=== PATIENT | male | born 1935 | race Caucasian/White ===

== ENCOUNTER → 2016-11-12 | Outpatient (CLI) | payer MEDICARE, BC ==
[2016-07-24 06:32] VITALS: BP 164/91
[~2016-11-12] MED LIST: ALBU8.5H8 INH; ASPI-630 PO; CEFT1FRO2 IV; CHOL10003 PO; DILT120T3 PO; FISH12002 PO; IBRU140C PO; IPRA3AMP NEB; LEVO500P IV; LORA10TA68 PO; MELO15TA23 PO; MULT-208 PO; OMEP40CA5 PO; PRED5TAB PO
--- NOTE | 2016-11-12 10:13 | RAD ---
Carotid ultrasound, 11/12/2016: History: Left neck and arm swelling Duplex evaluation of the carotid arteries in neck was performed including grayscale, color-flow and spectral Doppler analysis. There is mild intimal thickening and smooth plaquing in the common carotid arteries and at the carotid bifurcations. The peak systolic velocity in the right internal carotid artery is 68 cm/s and on the left is 89 cm/s. No significant velocity acceleration is seen on either side to suggest a hemodynamically significant carotid stenosis. Antegrade flow is present in both vertebral arteries in the neck. IMPRESSION: Mild atherosclerotic plaquing at both carotid bifurcations with underlying luminal narrowing in the 0-50% diameter range bilaterally. Note: Stenosis calculations for CT, MRA and conventional angiography are based upon determination of the distal ICA diameter in accordance with the NASCET methodology. Stenosis calculations for Doppler studies are derived from validated velocity criteria which are known to correlate with NASCET methodology of determining stenosis.
== END | disposition home or self-care (01) ==
LOC: US 08:36
PROVIDERS: ATTEND Family Medicine
DX: I65.23 Occlusion and stenosis of bilateral carotid arteries (principal); J43.2 Centrilobular emphysema; J20.8 Acute bronchitis due to other specified organisms; J96.01 Acute respiratory failure with hypoxia; M79.89 Other specified soft tissue disorders
CPT/HCPCS: 93880

== ENCOUNTER 2016-11-22 14:36 | Emergency (ER) | payer MEDICARE, BC ==
[~2016-11-22] VITALS: Ht 193 cm; Wt 82.2 kg
[2016-11-22 14:44] VITALS: BP 135/65
[2016-11-22] MEDS ORDERED: IV NORMAL SALINE 1,000ML 1,000 ML IV SCH (14:44)
[2016-11-22] MEDS ORDERED: MORPHINE SULFATE 4 MG/ML DISP.SYRIN. IV/SQ PRN (14:45)
--- NOTE | 2016-11-22 14:53 | PHYS DOC ---
General Chief Complaint: ABDOMINAL PAIN Stated Complaint: Abd. Pain Time Seen by MD: 14:42 Source: patient, EMS Exam Limitations: no limitations Problems: History of Present Illness Initial Comments Patient is an 80-year-old male brought to the ED by EMS with complaint of nausea vomiting and abdominal/back muscular pain. Patient states that symptoms started about an hour ago after eating a meal provided by [employer]. 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 EMS reports there was vomit in the patient think questionably coffee ground material, no gross blood or coffee grounds noted in emesis upon ED arrival. Patient states that the abdominal pain and continuous retching has caused his back to hurt. Patient has COPD and uses an oxygen concentrator by nasal cannula his baseline is 2 L. EMS report patient's oxygen saturation on 2 L was 80%, they were able to titrate him to 4 L of oxygen with a pretty consistent oxygen saturation 96%. Patient denies chest pain or difficulty breathing. Shortly after arrival patient requested his oxygen be turned back to his baseline 2 L, his sats remained stable throughout ED course. Timing/Duration: 1 hour Severity: moderate Modifying Factors: worse with eating Associated Symptoms: nausea/vomiting, other Allergies: Coded Allergies: procaine (Verified Allergy, Intermediate, 03/27/16) pseudoephedrine (Verified Allergy, Intermediate, 03/27/16) zolpidem (Verified Allergy, Intermediate, 03/27/16) Past Medical History Medical History: other (cancer, copd, gerd, pneumonia) Surgical History: noncontributory Social History Smoker: non-smoker Alcohol: none Drugs: none Review of Systems Constitutional: denies chills, diaphoresis, denies fever, denies malaise Respiratory: see HPI, cough Cardiovascular: denies chest pain, denies palpitations, denies syncope Gastrointestinal: abdominal pain, denies constipation, denies diarrhea, nausea , vomiting Genitourinary: denies dysuria, denies frequency, denies hematuria, denies pain Musculoskeletal: see HPI, denies joint swelling, denies neck pain Psychiatric/Neurological: denies headache, denies numbness, denies paresthesia , denies weakness Hematologic/Lymphatic: denies blood clots, denies easy bleeding Physical Exam General Appearance: moderate distress (retching and vomiting on ED arrival) Eyes: bilateral eye normal inspection, bilateral eye PERRL, bilateral eye EOMI Ear, Nose, Throat: hearing grossly normal, normal ENT inspection, normal pharynx Neck: non-tender, supple Respiratory: other (wheezes bilaterally with good air movement no respiratory distress chest is nontender) Cardiovascular: normal peripheral pulses, regular rate, rhythm Gastrointestinal: soft (nondistended, bowel sounds normal, mild epigastric tenderness without rebound guarding or mass negative [place]) Rectal: deferred Back: no CVA tenderness, no vertebral tenderness Extremities: non-tender, normal inspection Neurologic/Psychiatric: 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 PHYSICIAN: JOSE JOHNSON DO REASON: n/v/hypoxia PROCEDURE: ACUTE ABDOMEN SERIES Indication difficulty breathing. Abdominal pain. Nausea and vomiting. An AP view of the chest was obtained as well as upright and supine films of the abdomen. The chest is compared to an examination 4 months earlier. No prior imaging of the abdomen is available. There are chronic changes compatible with emphysema and/or fibrosis.. Heart size is slightly enlarged. There is no gross congestive heart failure. Significant pleural fluid is not seen. There is no pneumothorax. An acute finding in the chest is not seen. There is a large hiatus hernia. There is no free air. The abdominal gas pattern is nonobstructive. A moderately large amount of stool is noted in the large bowel. Scoliosis and degenerative changes in the lumbar spine are noted. IMPRESSION: Chronic changes in the chest. No acute finding seen. Mild enlargement of the cardiac silhouette. Large hiatus hernia. No acute finding seen in the abdomen. Large amount of stool in the large bowel. Chronic musculoskeletal changes DICTATED AND SIGNED BY: CHIN SANDESR MD DATE: 06/01/17 1532 CC: STANISLAV HATCH MD; JOSE JOHNSON DO ~ Hemoglobin 11, MCV 75, platelets 129, emesis Gastroccult negative, urinalysis equivocal will await culture 1642: I discussed the patient's results with him at length that his questions were answered. Reassuring workup, he is currently back to his normal 2 L nasal cannula with normal saturation. He says he burped "a very large burp" which dramatically helped his symptoms. Further discussion reveals as of the third episode of similar symptoms he's had in the past few months. He has hiatal hernia and Camarillo's esophagus history, he has not been to see gastroenterology in several years and is due. I discussed follow-up with Dr. Hatch tomorrow for recheck and to discuss outpatient gastroenterology workup. HEENT his family expressed agreement and understanding, he has medications for nausea at home and is asymptomatic no prescriptions necessary at this point. Departure Time of Disposition: 16:44 Disposition: 01 HOME, SELF-CARE Diagnosis: vomiting, COPD O2 dependent Condition: IMPROVED Patient Instructions: Nausea and Vomiting, [id number] Additional Instructions: Continue current medications. [place] diet as tolerated, increase fluids for better hydration Gatorade or water. Follow-up with Dr. Hatch tomorrow for recheck and to discuss outpatient gastroenterology follow-up visit. Return to the ED with new or changing symptoms. JOSE JOHNSON DO Nov 22, 2016 14:53
[2016-11-22] MEDS ORDERED: FAMOTIDINE 20 MG/2 ML VIAL IVP ONE (15:00)
[2016-11-22] MEDS ORDERED: ONDANSETRON PF 4 MG/2 ML VIAL. IV ONE (15:00)
[2016-11-22 15:27] LABS: BASO # 0.1 x10^3/uL (0.0-0.2); BASO % 1 % (0-3); EOS # 0.3 x10^3/uL (0.0-0.7); EOS % 3 % (0-3); HEMATOCRIT 35.4 % (39.0-53.0); LYMPH # 0.5 x10^3/uL (1.0-4.8); LYMPH % 5 % (24-48); MEAN CORPUSCULAR HEMOGLOBIN 23 pg (25-35); MEAN CORPUSCULAR HGB CONC 31 g/dL (31-37); MEAN CORPUSCULAR VOLUME 75 fL (79-100); MONO # 1.9 x10^3/uL (0.0-1.1); MONO % 20 % (0-9); NEUT # 6.8 x10^3uL (1.8-7.7); NEUT % 71 % (31-73); PLATELET COUNT 129 x10^3/uL (140-400); RED BLOOD COUNT 4.71 x10^6/uL (4.30-5.70); RED CELL DISTRIBUTION WIDTH 17.8 % (11.5-14.5); WHITE BLOOD COUNT 9.6 x10^3/uL (4.0-11.0)
--- NOTE | 2016-11-22 15:38 | RAD ---
Indication difficulty breathing. Abdominal pain. Nausea and vomiting. An AP view of the chest was obtained as well as upright and supine films of the abdomen. The chest is compared to an examination 4 months earlier. No prior imaging of the abdomen is available. There are chronic changes compatible with emphysema and/or fibrosis.. Heart size is slightly enlarged. There is no gross congestive heart failure. Significant pleural fluid is not seen. There is no pneumothorax. An acute finding in the chest is not seen. There is a large hiatus hernia. There is no free air. The abdominal gas pattern is nonobstructive. A moderately large amount of stool is noted in the large bowel. Scoliosis and degenerative changes in the lumbar spine are noted. IMPRESSION: Chronic changes in the chest. No acute finding seen. Mild enlargement of the cardiac silhouette. Large hiatus hernia. No acute finding seen in the abdomen. Large amount of stool in the large bowel. Chronic musculoskeletal changes
[2016-11-22 15:47] LABS: ALBUMIN 3.5 g/dL (3.4-5.0); ALBUMIN/GLOBULIN RATIO 1.2 (1.0-1.7); CALCIUM 8.5 mg/dL (8.5-10.1); CREATININE 1.2 mg/dL (0.7-1.3); GFR 58.3; POTASSIUM 4.5 mmol/L (3.5-5.1); TOTAL BILIRUBIN 0.4 mg/dL (0.2-1.0); TOTAL PROTEIN 6.5 g/dL (6.4-8.2)
[2016-11-22 15:55] LABS: BGAS PH 7.32 (7.35-7.46)
[2016-11-22 16:01] LABS: GASTRIC OB PAT NEGATIVE (NEG)
--- NOTE | 2016-11-22 16:06 | EKG ---
[address] [address] Test Date: 2016-11-22 Test Time: 15:05:44 Pat Name: IGNACIO ELIZONDO Department: Room: Gender: M Microbiology Lab Technician: JOAN : 1935 Requested By: JOSE JOHNSON Order Number: [id number] Reading MD: Aston Cain Measurements Intervals [place] Rate: 65 P: 31 VA: 182 QRS: -87 QRSD: 134 T: 24 QT: 434 QTc: 457 Interpretive Statements SINUS RHYTHM ABNORMAL LEFT AXIS DEVIATION LEFT ANTERIOR FASCICULAR BLOCK RIGHT BUNDLE BRANCH BLOCK BIFASCICULAR BLOCK NON SPECIFIC ST-T ABNORMALITY (ELEVATION) RI6.01 Unconfirmed report No previous ECG available for comparison Electronically Signed On 11-28-2016 9:21:27 CDT by Aston Cain
--- NOTE | 2016-11-22 16:15 | ACF ---
Admission Criteria Forms COPD Clinical Indications for Admission to Inpatient Care (Place 'X' for any and all applicable criteria): Admission is indicated for ANY ONE of the following (1)(2)(3): [ ]I. Acute exacerbation by high-risk comorbidity (e.g., pneumonia, dysrhythmia, heart failure, pleural effusion, pneumothorax) or severe underlying COPD (e.g., steroid dependent) [X]II. Inpatient admission required rather than observation care (see Chronic Obstructive Pulmonary Disease: Observation Care) because of ANY ONE of the following: [ ]a) New or pre-existing signs or symptoms of COPD (eg, dyspnea or Tachypnea at rest or with minimal activity) that persist despite outpatient and observation care treatment [ ]b) New-onset hypoxemia (room air SaO2 less than 90%, PO2 less than 60 mm Hg (8.0 kPa)) that persists despite outpatient and observation care treatment [ ]c) Worsening of pre-existing hypoxemia (eg, new or increased requirement for supplemental oxygen to maintain oxygenation at baseline level) that persists despite outpatient and observation care treatment, with oxygen treatment needs performable only in acute inpatient setting [X]d) Hypercarbia (PCO2 greater than 40 mm Hg (5.3 kPa))-induced respiratory acidosis (pH less than 7.35) that persists despite outpatient and observation care treatment [ ]e) Supplemental oxygen or respiratory treatments for over 24 hours that are performable only in acute inpatient setting [ ]f) Chest tube placement with active evacuation (e.g., suction, drainage) (5) [ ]g) Other condition, treatment or monitoring requiring inpatient admission [ ]III. Planned invasive surgical or diagnostic procedures requiring acute- care hospitalization [ ]IV. Acute respiratory failure (e.g., uncompensated hypercarbia, severe hypoxemia) [ ]V. Severe comorbid condition (e.g., severe steroid myopathy, acute vertebral fracture) that has acutely worsened pulmonary function [ ]. Confusion state, lethargy, obtundation, stupor or coma Extended stay beyond goal length of stay may be needed for (31)(32): [ ]a ) Respiratory Failure. [ ]b) Severe or persisting hypoxemia or hypercarbia [ ]c) Severe or persistent dyspnea [ ]d) Comorbidities (e.g. chronic heart failure, atrial fibrillation with rapid response, pneumonia) [ ]e) Malnutrition The original [facility] content created by [facility] has been revised. The portions of the content which have been revised are identified through the use of italic text or in bold, and [facility] has neither reviewed nor approved the modified material. All other unmodified content is copyright [facility]. Please see references footnoted in the original [facility] edition 2016 Admission Criteria Met?: Yes TOD MYRICK Nov 22, 2016 16:15
[2016-11-22 16:41] LABS: BILIRUBIN,URINE NEG (NEG); CLARITY,URINE CLEAR; COLOR,URINE YELLOW; GLUCOSE,URINE NEG (NEG); NITRITE,URINE NEG (NEG); UROBILINOGEN,URINE 0.2 mg/dL (0.2 mg/dL)
[2016-11-22 16:42] LABS: BACTERIA,URINE 0 /HPF (0-FEW); HYALINE CASTS, URINE FEW /HPF; RBC,URINE OCC /HPF (0-2); SQUAMOUS EPITHELIAL CELL,UR FEW /LPF
[2016-11-27] MEDS ORDERED: LEVO750P IV (11:08)
[2016-11-27] MEDS ORDERED: MORP4CAR IV (11:08)
[2016-11-27] MEDS ORDERED: ONDA4VIA4 IV (11:08)
[2016-11-27] MEDS ORDERED: CEFT1VIA6 IJ (11:08)
== END 2016-11-22 17:15 | disposition home or self-care (01) ==
LOC: ER 14:36
DX: R11.2 Nausea with vomiting, unspecified (principal); J44.9 Chronic obstructive pulmonary disease, unspecified; K21.9 Gastro-esophageal reflux disease without esophagitis; Z99.81 Dependence on supplemental oxygen; Z88.4 Allergy status to anesthetic agent; Z88.8 Allergy status to other drugs, medicaments and biological substances
CPT/HCPCS: 36415; 36600; 74022; 80053; 81001; 82271; 82803; 83605; 83690; 84484; 85027; 85610; 85730; 87040; 87086; 93005; 96361; 96374; 96375; 99285; J2405; S0028; J7030

== ENCOUNTER 2016-11-26 22:02 | Inpatient (IN) | payer MEDICARE, BC ==
[~2016-11-26] VITALS: Ht 193 cm; Wt 82.1 kg
[2016-11-26] MEDS ORDERED: IV NORMAL SALINE 1,000ML 1,000 ML IV ONE (23:00)
[2016-11-26] MEDS ORDERED: ONDANSETRON PF 4 MG/2 ML VIAL. IV ONE (23:15)
[2016-11-26] MEDS ORDERED: CONTRAST GIVEN MC PRN (23:15)
[2016-11-26] MEDS ORDERED: IOHEXOL 300 MG/ML 75 ML VIAL. IV ONE (23:15)
[2016-11-26 23:49] LABS: BASO # 0.1 x10^3/uL (0.0-0.2); BASO % 2 % (0-3); EOS # 0.1 x10^3/uL (0.0-0.7); EOS % 1 % (0-3); HEMATOCRIT 34.3 % (39.0-53.0); HEMOGLOBIN 10.7 g/dL (13.0-17.5); LYMPH # 0.3 x10^3/uL (1.0-4.8); LYMPH % 5 % (24-48); MEAN CORPUSCULAR HEMOGLOBIN 23 pg (25-35); MEAN CORPUSCULAR HGB CONC 31 g/dL (31-37); MEAN CORPUSCULAR VOLUME 75 fL (79-100); MONO # 1.5 x10^3/uL (0.0-1.1); MONO % 23 % (0-9); NEUT # 4.7 x10^3uL (1.8-7.7); NEUT % 69 % (31-73); PLATELET COUNT 107 x10^3/uL (140-400); RED CELL DISTRIBUTION WIDTH 18.1 % (11.5-14.5); WHITE BLOOD COUNT 6.7 x10^3/uL (4.0-11.0)
[2016-11-26 23:59] LABS: ALBUMIN 3.6 g/dL (3.4-5.0); ALBUMIN/GLOBULIN RATIO 1.3 (1.0-1.7); CALCIUM 8.5 mg/dL (8.5-10.1); CREATININE 1.2 mg/dL (0.7-1.3); GFR 58.1; POTASSIUM 4.8 mmol/L (3.5-5.1); TOTAL BILIRUBIN 0.3 mg/dL (0.2-1.0); TOTAL PROTEIN 6.4 g/dL (6.4-8.2)
[2016-11-27 00:16] LABS: ANISOCYTOSIS SLIGHT; HYPOCHROMIA SLIGHT; PLT ESTIMATE DECREASED (ADEQUATE)
--- NOTE | 2016-11-27 00:42 | RAD ---
CT abdomen and pelvis with contrast: Reason for examination: Abdominal pain with nausea and vomiting for 1 week. History of lymphoma in remission. Helical images were obtained through the abdomen and pelvis with intravenous administration of 75 cc Omnipaque 300. Reconstruction was performed in sagittal and coronal planes. Exposure: One or more of the following individualized dose reduction techniques were utilized for this examination: 1. Automated exposure control 2. Adjustment of the mA and/or kV according to patient size 3. Use of iterative reconstruction technique. The lung bases show presence of patchy interstitial infiltrates bilaterally. The heart size is normal with no pericardial effusion seen. There is a large hiatal hernia containing large portion of stomach. No focal abnormality seen in the liver, spleen, adrenal glands, gallbladder or pancreas. The abdominal aorta and inferior vena cava show no acute abnormalities. The stomach appears be full of fluid in the intestinal tract does not appear distended and there is no apparent bowel obstruction. There are diverticula in the sigmoid colon consistent with diverticulosis but no evidence of diverticulitis. There is a moderate amount of fecal material within the colon. The kidneys show no evidence of masses or hydronephrosis. There is however a nonobstructing calculus in the upper pole right kidney. No abnormality seen in the bladder. Prostate gland contains calcifications. Seminal vesicles appear relatively symmetric. A few prominent lymph nodes are seen in the retroperitoneum. There are severe degenerative changes in the spine. No acute abnormalities seen in the bony structures. IMPRESSION: Large hiatal hernia containing a large portion of fluid-filled stomach. Interstitial infiltrates in the bases bilaterally. Diverticulosis in the sigmoid colon without evidence of diverticulitis. A few prominent lymph nodes in the retroperitoneum. Nonobstructing calculus in the right kidney upper pole. Electronically signed by: Susie Wells MD (11/27/2016 12:39 AM)
[2016-11-27 00:58] LABS: BACTERIA,URINE FEW /HPF (0-FEW); BILIRUBIN,URINE NEG (NEG); CLARITY,URINE CLEAR; COLOR,URINE YELLOW; GLUCOSE,URINE NEG (NEG); NITRITE,URINE NEG (NEG); RBC,URINE 0 /HPF (0-2); SQUAMOUS EPITHELIAL CELL,UR OCC /LPF; UROBILINOGEN,URINE 0.2 mg/dL (0.2 mg/dL)
--- NOTE | 2016-11-27 01:34 | PHYS DOC ---
Past History Past Medical History: Cancer, COPD, GERD Past Surgical History: No Surgical History Alcohol Use: None Drug Use: None Adult General Chief Complaint Chief Complaint: ABDOMINAL PAIN HPI HPI Patient is a 81 year old M who presents with intractable nausea and abdominal pain since 11 AM this morning. Patient denies any vomiting. Patient denies any fevers. Patient denies any diarrhea. Patient does have a productive cough and states that he just came off around of antibiotics for a URI. Pertinent exam findings: 3/6 systolic ejection murmur Generalized mild abdominal tenderness with bowel sounds are normal 4 quadrants ED course: Patient seen and evaluated in the emergency room CBC, CMP, lipase, UA, CT scan abdomen and pelvis were ordered 0055: Results were discussed with the patient who is still having increased nausea but no vomiting and a productive cough therefore will admit the hospital for further treatment of his persistent pneumonia 0101: Dr. Sexton was called and left a message on the cell phone 0120: Discussed CC/HP/PMH with Dr. Sexton and recommends admit [] Pertinent results: CT scan abdomen and pelvis: IMPRESSION: Large hiatal hernia containing a large portion of fluid-filled stomach. Interstitial infiltrates in the bases bilaterally. Diverticulosis in the sigmoid colon without evidence of diverticulitis. A few prominent lymph nodes in the retroperitoneum. Nonobstructing calculus in the right kidney upper pole. MDM: After reviewing the chart, CC/HPI/PMH, physical exam, [lab results], [ radiological results], I do not believe the patient has intra-abdominal emergency wanting emergent surgical intervention however he's had a persistent nausea and CT scan does show bilateral lower lobe infiltrates that have not resolved even though the patient didn't course of antibiotics. We will the patient for further treatment for his pneumonia and his nausea. Review of Systems Review of Systems GEN: Denies fevers, chills, sweats HEENT: Denies blurred vision, sore throat CV: Denies chest pain RESP: Denies shortness of air, cough GI: Aston pain with nausea and no vomiting NEURO: Denies confusion, dizziness MSK: Denies weakness, joint pain/swelling Current Medications Current Medications Current Medications Medications (Trade) Dose Ordered Sig/Saad Start Time Stop Time Status Last Admin Dose Admin Info (Do NOT chart on this entry -- for MONITORING) 1 each PRN DAILY PRN 11/26/16 23:15 11/28/16 23:14 Iohexol (Omnipaque 300 Mg/ml) 75 ml 1X ONCE 11/26/16 23:15 11/26/16 23:16 DC 11/26/16 23:18 75 ML Levofloxacin/ Dextrose 150 ml @ 150 mls/hr 1X ONCE 11/27/16 01:30 11/27/16 02:29 UNV Ondansetron HCl (Zofran) 4 mg 1X ONCE 11/26/16 23:15 11/26/16 23:16 DC 11/26/16 23:15 4 MG Sodium Chloride 1,000 ml @ 1,000 mls/hr 1X ONCE 11/26/16 23:00 11/26/16 23:59 DC 11/26/16 23:00 1,000 MLS/HR Allergies Allergies Allergies Coded Allergies Type Severity Reaction Last Updated Verified procaine Allergy Intermediate 03/27/16 Yes pseudoephedrine Allergy Intermediate 03/27/16 Yes zolpidem Allergy Intermediate 03/27/16 Yes Physical Exam Physical Exam GEN.: No apparent distress. Alert and oriented. HEENT: Head is normocephalic, atraumatic NECK: Supple. LUNGS: CTAB. HEART: RRR, 3/6 IRA. Peripheral pulses intact ABDOMEN: Soft, generalized abdominal tenderness. Positive bowel sounds. EXTREMITIES: Without any cyanosis. NEUROLOGIC: Normal speech, normal tone PSYCHIATRIC: Normal affect, normal mood. SKIN: No ulcerations Current Patient Data Vital Signs Vital Signs Date Time Temp Pulse Resp B/P (MAP) Pulse Ox O2 Delivery O2 Flow Rate FiO2 11/26/16 22:30 98.5 71 22 90 Nasal Cannula 2.0 Lab Results Laboratory Tests Test 11/26/16 23:25 11/27/16 00:30 White Blood Count 6.7 x10^3/uL (4.0-11.0) Red Blood Count 4.60 x10^6/uL (4.30-5.70) Hemoglobin 10.7 g/dL (13.0-17.5) L Hematocrit 34.3 % (39.0-53.0) L Mean Corpuscular Volume 75 fL (79-100) L Mean Corpuscular Hemoglobin 23 pg (25-35) L Mean Corpuscular Hemoglobin Concent 31 g/dL (31-37) Red Cell Distribution Width 18.1 % (11.5-14.5) H Platelet Count 107 x10^3/uL (140-400) L Neutrophils (%) (Auto) 69 % (31-73) Lymphocytes (%) (Auto) 5 % (24-48) L Monocytes (%) (Auto) 23 % (0-9) H Eosinophils (%) (Auto) 1 % (0-3) Basophils (%) (Auto) 2 % (0-3) Neutrophils # (Auto) 4.7 x10^3uL (1.8-7.7) Lymphocytes # (Auto) 0.3 x10^3/uL (1.0-4.8) L Monocytes # (Auto) 1.5 x10^3/uL (0.0-1.1) H Eosinophils # (Auto) 0.1 x10^3/uL (0.0-0.7) Basophils # (Auto) 0.1 x10^3/uL (0.0-0.2) Platelet Estimate Decreased (ADEQUATE) Large Platelets Occ Hypochromasia Slight Anisocytosis Slight Sodium Level 142 mmol/L (136-145) Potassium Level 4.8 mmol/L (3.5-5.1) Chloride Level 106 mmol/L (98-107) Carbon Dioxide Level 30 mmol/L (21-32) Anion Gap 6 (6-14) Blood Urea Nitrogen 27 mg/dL (8-26) H Creatinine 1.2 mg/dL (0.7-1.3) Estimated GFR (Cockcroft-Gault) 58.1 BUN/Creatinine Ratio 23 (6-20) H Glucose Level 156 mg/dL (70-99) H Calcium Level 8.5 mg/dL (8.5-10.1) Total Bilirubin 0.3 mg/dL (0.2-1.0) Aspartate Amino Transferase (AST) 18 U/L (15-37) Alanine Aminotransferase (ALT) 22 U/L (16-63) Alkaline Phosphatase 83 U/L (46-116) Total Protein 6.4 g/dL (6.4-8.2) Albumin 3.6 g/dL (3.4-5.0) Albumin/Globulin Ratio 1.3 (1.0-1.7) Lipase 309 U/L (73-393) Urine Collection Type Unknown Urine Color Yellow Urine Clarity Clear Urine pH 5.5 Urine Specific [place] 1.010 Urine Protein Neg (NEG-TRACE) Urine Glucose (UA) Neg mg/dL (NEG) Urine Ketones (Stick) Neg mg/dL (NEG) Urine Blood Neg (NEG) Urine Nitrite Neg (NEG) Urine Bilirubin Neg (NEG) Urine Urobilinogen Dipstick 0.2 mg/dL (0.2 mg/dL) Urine Leukocyte Esterase Neg (NEG) Urine RBC 0 /HPF (0-2) Urine WBC 1-4 /HPF (0-4) Urine Squamous Epithelial Cells Occ /LPF Urine Bacteria Few /HPF (0-FEW) EKG EKG [] Radiology/Procedures Radiology/Procedures CT scan of abdomen and pelvis with contrast: IMPRESSION: Large hiatal hernia containing a large portion of fluid-filled stomach. Interstitial infiltrates in the bases bilaterally. Diverticulosis in the sigmoid colon without evidence of diverticulitis. A few prominent lymph nodes in the retroperitoneum. Nonobstructing calculus in the right kidney upper pole.[] Course & Med Decision Making Course & Med Decision Making Pertinent Labs and Imaging studies reviewed. (See chart for details) [] Dragon Disclaimer Dragon Disclaimer This chart was dictated in whole or in part using Voice Recognition software in a busy, high-work load, and often noisy Emergency Department environment. It may contain unintended and wholly unrecognized errors or omissions. Departure Departure: Impression: Primary Impression: Pneumonia Additional Impression: Hiatal hernia Disposition: 09 ADMITTED INPATIENT Admitting Physician: Stanislav Sexton Condition: STABLE Referrals: STANISLAV SEXTON MD (PCP) Problem Qualifiers Primary Impression: Pneumonia Pneumonia type: due to unspecified organism Laterality: bilateral Lung location: lower lobe of lung Qualified Codes: J18.9 - Pneumonia, unspecified organism SEDRICK LOWE DO Nov 27, 2016 01:34
[2016-11-27 02:00] VITALS: BP 115/67
[2016-11-27] MEDS ORDERED: IV NORMAL SALINE 1,000ML 1,000 ML IV SCH (04:03)
--- NOTE | 2016-11-27 04:08 | ACF ---
Admission Criteria Forms PNEUMONIA, COMMUNITY ACQUIRED Clinical Indications for Admission to Inpatient Care ( Place 'X' for any and all applicable criteria): Admission is indicated for ANY ONE of the following (1)(2)(3): [ ]I. Hypoxemia indicated by ANY ONE of the following: [ ]a) Oxygen saturation less than 90% while breathing room air [ ]b) PO2 less than 60 mm Hg (8.0 kPa) while breathing room air [ ]c) Chronic lung disease with significant deterioration from baseline oxygenation [ ]II. Appropriate diagnostic testing and treatment unavailable in outpatient or recovery facility (eg,testing or infection control measures unavailable(10) [X]III. Moderate-risk or high-risk category patients (Pneumonia Severity Index (PSI) class IV or V, or CURB-65 score of 3 or greater). [ ]IV. Outpatient treatment failure as indicated by ANY ONE of the following(9) : [ ]a) Failure to respond to antibiotic (eg, resistant organism) [ ]b) Clinically significant adverse effects from medication (eg, vomiting) [ ]c) Complications of pneumonia (eg, empyema, bacteremia) [ ]d) Significant worsening of comorbid cond necessitating inpatient care (eg, chronic heart failure) [ ]V. Intermediate-risk category patients (eg, PSI class III or CURB-65 score 2) who do not improve with initial therapy and observation. [ ]. Immunocompromised patients (eg, AIDS, chronic steroid use) at moderate or high risk based on clinical evaluation. [ ]VII. Complicated pleural effusions (eg, exudative, loculated) [ ]VIII.Hemodynamic instability [ ] IX. Altered mental status that is severe or persistent. [ ]X. Dehydration that is severe or persistent. [ ]XI. Bacteremia [ ]XII. Respiratory finding (eg. tachypnea) that do not respond to outpatient or observation care treatment Extended stay beyond goal length of stay may be needed for (20) [ ]a) Unclear diagnosis [ ]b) Pleural disease [ ]c) Severe pneumonia or treatment failure (25 [ ]d) Respiratory failure (anticipate invasive or noninvasive ventilatory support) [ ]e) Abnormal serum electrolytes (serum Na concentration less than 135 mEq/L (mmol/L) (32)(33) [ ]f) Clinically significant comorbid illness (eg, heart failure, atrial fibrillation with rapid heart rate, alcohol withdrawal, renal insufficiency)(34)(35) [ ]g) Comorbid acute exacerbation of COPD(36) [ ]h) Concomitant diagnosis of malignancy that may be associated with malnutrition, immunologic impairment, or bronchial obstruction. [ ]i) Concomitant altered mental status [ ]j) Culture-identified Gram-negative or antibiotic-resistant organism (eg, Pseudomonas, methicillin-resistant Staphylococcus aureus)(30) [ ]k) Healthcare-associated pneumonia The original [facility] [facility], [facility] content created by [employer] has been revised. The portions of the content which have been revised are identified through the use of italic text or in bold, and [facility] has neither reviewed nor approved the modified material. All other unmodified content is copyright [employer] [facility], [facility]. Please see references footnoted in the original [facility] edition 2016 Admission Criteria Met?: Yes TOD MYRICK Nov 27, 2016 04:08
[2016-11-27] MEDS ORDERED: MORPHINE SULFATE 4 MG/ML DISP.SYRIN. IV PRN (04:30)
[2016-11-27] MEDS ORDERED: ONDANSETRON PF 4 MG/2 ML VIAL. IV PRN (04:30)
[2016-11-27] MEDS ORDERED: DILT180C4 PO (05:15)
[2016-11-27] MEDS ORDERED: PROC10TA57 PO (05:15)
[2016-11-27] MEDS ORDERED: BUME1TAB PO (05:15)
[2016-11-27] MEDS ORDERED: FURO-69 PO (05:15)
[2016-11-27] MEDS ORDERED: TAMS0.4C97 PO (05:15)
[2016-11-27 06:00] VITALS: BP 106/67
[2016-11-27] MEDS ORDERED: ALBUTEROL SULFATE 8GM INHALER. INH PRN (09:45)
[2016-11-27] MEDS ORDERED: PROCHLORPERAZINE 10 MG TABLET. PO PRN (09:45)
[2016-11-27] MEDS ORDERED: CHOLECALCIFEROL (VITAMIN D3) 1,000 UNIT TABLET PO SCH (10:00)
[2016-11-27] MEDS ORDERED: MELOXICAM 15 MG TABLET. PO SCH (10:00)
[2016-11-27] MEDS ORDERED: TAMSULOSIN 0.4 MG CAP.ER.24H. PO SCH (10:00)
[2016-11-27] MEDS ORDERED: ASPIRIN 81 MG TAB.CHEW PO SCH (10:00)
[2016-11-27] MEDS: IPRATRPIUM/ALBUTEROL 0.5/2.5MG 3 ML NEBU. NEB SCH ×2 (10:04→10:25)
[2016-11-27] MEDS ORDERED: CETIRIZINE HCL 10 MG TABLET PO SCH (10:15)
[2016-11-27] MEDS ORDERED: ALBUTEROL SULFATE 2.5 MG/3 ML NEBU. NEB PRN (10:15)
[2016-11-27] MEDS ORDERED: OMEGA-3 FATTY ACIDS/FISH OIL 1,000 MG CAPSULE. PO SCH (10:15)
[2016-11-27 10:43] VITALS: BP 117/75
[2016-11-27] MEDS ORDERED: CEFT1VIA6 IJ (11:08)
[2016-11-27] MEDS ORDERED: MORP4CAR IV (11:08)
[2016-11-27] MEDS ORDERED: ONDA4VIA4 IV (11:08)
[2016-11-27] MEDS ORDERED: LEVO750P IV (11:08)
--- NOTE | 2016-11-27 11:55 | NUR ---
Discharge Note: IGNACIO ELIZONDO Discharge instructions and discharge home medications reviewed with [facility] RN and a copy given. All questions have been answered and understanding verbalized. The following instructions and handouts were given: MEDICATIONS, IMAGING, LABS, DIET, ACTIVITY, AND FOLLOW UP INSTRUCTIONS. Discontinued lines and drains: PERIPHERAL IV LEFT INTACT FOR USE AT [facility]. Patient discharged to [facility] via EMS.
[2016-11-28] MEDS ORDERED: PANTOPRAZOLE 40 MG TABLET. PO SCH (07:30)
[2016-11-28] MEDS ORDERED: FUROSEMIDE 20 MG TABLET PO SCH (09:00)
[2016-11-28] MEDS ORDERED: MULTIVITAMIN with MINERAL TABLET. PO SCH (09:00)
[2016-11-28] MEDS ORDERED: IBRUTINIB 140 MG PO SCH (09:00)
[2016-11-28] MEDS ORDERED: BUMETANIDE 1 MG TABLET PO SCH (09:00)
--- NOTE | 2016-12-05 13:07 | SSS ---
ADMIT DATE: 11/27/2016 HOSPITAL COURSE: An 81-year-old gentleman came in through the Emergency Room with severe intractable nausea, vomiting, and abdominal pain. The patient notes that he has not been having any diarrhea. He does have a productive cough. The patient has multiple chronic medical problems. As a result of this, the patient was admitted to the hospital and found to have a large hiatal hernia up into his thoracic cavity. The patient was admitted for admission and further evaluation by surgery. PAST MEDICAL HISTORY: Tonsillitis, tonsillectomy, adenoidectomy, severe respiratory problems, COPD, chronic oxygen therapy, asthma, and pneumonia. 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 SOCIAL HISTORY: As noted, history of smoking, quit in 1986. Denies alcohol or drug use. Lives at home. FAMILY HISTORY: Father confirmed with some form of cancer. ALLERGIES: THE PATIENT HAS ALLERGIES TO PROCAINE, PSEUDOEPHEDRINE, AND AMBIEN. REVIEW OF SYSTEMS: Positive for weight loss, difficulty swallowing food gets caught in his throat, nausea, vomiting, and like. HOME MEDICATIONS: Albuterol nebulizer, ____ 1 mg daily, Rocephin daily, diltiazem 180 daily, loratadine 10 mg daily, meloxicam 15, morphine p.r.n., Prilosec p.r.n., and Flomax. PHYSICAL EXAMINATION: GENERAL: The patient on exam is a pleasant white male in moderate amount of distress. VITAL SIGNS: Blood pressure 120/70, respiratory 26, pulse 73, and afebrile. HEENT: The patient's head was atraumatic and normocephalic. Eyes, PERRLA without jaundice. Mouth and throat were normal. NECK: Supple. LUNGS: Diminished. Marked kyphosis and scoliosis to the spine. Decreased breath sounds. CVR: Regular sinus rhythm. 2-3/6 systolic ejection. ABDOMEN: Soft and nontender. No rebound or scaphoid. EXTREMITIES. No clubbing, cyanosis, or edema. NEUROLOGIC: The patient was alert and oriented x 3. LABORATORY DATA: The patient's blood sugar 156. BUN and creatinine 27 and 1.2. White count 6. Hemoglobin noted stable. The patient's urine unremarkable. IMPRESSION AND PLAN: The patient continued to be monitored accordingly. The patient was therefore of a large hiatal hernia and fluid filled into the lung itself up into thoracic cavity. In any case, the patient was admitted for evaluation by surgery and transferred down to the hospital [facility] [place] since we do not have any general surgeon here to take care such situation as indicated. STANISLAV HATCH MD DR: LUDY/ciro JOB#: [id number] / [id number]
== END 2016-11-27 11:57 | disposition short-term general hospital (02) | DRG 391 ==
LOC: ER 22:02 → 1 SOUTH 11-27 01:32
PROVIDERS: ADMIT Family Medicine; ATTEND Family Medicine
DX: K44.9 Diaphragmatic hernia without obstruction or gangrene (principal); J96.20 Acute and chronic respiratory failure, unspecified whether with hypoxia or hypercapnia; J44.0 Chronic obstructive pulmonary disease with (acute) lower respiratory infection; J44.9 Chronic obstructive pulmonary disease, unspecified; K21.9 Gastro-esophageal reflux disease without esophagitis; K57.30 Diverticulosis of large intestine without perforation or abscess without bleeding; Z88.4 Allergy status to anesthetic agent; Z88.8 Allergy status to other drugs, medicaments and biological substances; Z87.01 Personal history of pneumonia (recurrent)
CPT/HCPCS: 36415; 74177; 80053; 81001; 83605; 83690; 85008; 85027; 87040; 94640; 96361; 96374; J0696; J1956; J2405; J7620; Q9967; 99285-25; J7030

== ENCOUNTER 2016-12-07 23:28 | Emergency (ER) | payer MEDICARE, BC ==
[~2016-12-07] VITALS: Ht 185.4 cm; Wt 75.0 kg
[~2016-12-07 23:28] MED LIST changes: +BUME1TAB PO; +CEFT1VIA6 IJ; +DILT180C4 PO; +FURO-69 PO; +LEVO750P IV; +MORP4CAR IV; +ONDA4VIA4 IV; +PROC10TA57 PO; +TAMS0.4C97 PO
[2016-12-08] MEDS ORDERED: MORPHINE SULFATE 4 MG/ML DISP.SYRIN. IV/SQ PRN (00:15)
[2016-12-08] MEDS ORDERED: FAMOTIDINE 20 MG/2 ML VIAL IVP ONE (00:30)
[2016-12-08] MEDS ORDERED: ONDANSETRON PF 4 MG/2 ML VIAL. IV ONE (00:30)
[2016-12-08] MEDS ORDERED: IV NORMAL SALINE 1,000ML 1,000 ML IV SCH (00:30)
[2016-12-08 01:09] LABS: ALBUMIN 3.6 g/dL (3.4-5.0); ALBUMIN/GLOBULIN RATIO 1.2 (1.0-1.7); CALCIUM 8.7 mg/dL (8.5-10.1); CREATININE 1.4 mg/dL (0.7-1.3); GFR 48.6; MAGNESIUM 2.5 mg/dL (1.8-2.4); POTASSIUM 4.1 mmol/L (3.5-5.1); TOTAL BILIRUBIN 0.3 mg/dL (0.2-1.0); TOTAL PROTEIN 6.7 g/dL (6.4-8.2)
[2016-12-08 01:32] LABS: BASO # 0.1 x10^3/uL (0.0-0.2); BASO % 1 % (0-3); EOS # 0.1 x10^3/uL (0.0-0.7); EOS % 1 % (0-3); HEMATOCRIT 35.6 % (39.0-53.0); HEMOGLOBIN 10.8 g/dL (13.0-17.5); LYMPH # 0.4 x10^3/uL (1.0-4.8); LYMPH % 4 % (24-48); MEAN CORPUSCULAR HEMOGLOBIN 23 pg (25-35); MEAN CORPUSCULAR HGB CONC 30 g/dL (31-37); MEAN CORPUSCULAR VOLUME 76 fL (79-100); MONO # 1.7 x10^3/uL (0.0-1.1); MONO % 18 % (0-9); NEUT # 7.1 x10^3uL (1.8-7.7); NEUT % 76 % (31-73); PLATELET COUNT 111 x10^3/uL (140-400); RED BLOOD COUNT 4.72 x10^6/uL (4.30-5.70); RED CELL DISTRIBUTION WIDTH 18.2 % (11.5-14.5); WHITE BLOOD COUNT 9.3 x10^3/uL (4.0-11.0)
--- NOTE | 2016-12-08 01:44 | PHYS DOC ---
Past History Past Medical History: Cancer, COPD, GERD Past Surgical History: No Surgical History Alcohol Use: None Drug Use: None Adult General Chief Complaint Chief Complaint: ABDOMINAL PAIN HPI HPI Patient is a 81 year old male who presents with complaint of abdominal pain and vomiting. Patient states that his symptoms started earlier today. Patient states that he was recently admitted to the hospital at [facility] on November 27 where he was evaluated for similar symptoms. Patient was diagnosed with a large hiatal hernia. Patient also has history of cancer and COPD. The patient is scheduled to have surgery for his hiatal hernia on December 10 at [facility]. Patient states that he took Compazine at home with no relief in symptoms. Patient currently rates the pain in his upper abdomen is 8 out of 10. Patient denies any fevers or blood in his emesis. Review of Systems Review of Systems Constitutional: Denies fever or chills [] Eyes: Denies change in visual acuity, redness, or eye pain [] HENT: Denies nasal congestion or sore throat [] Respiratory: Denies cough or shortness of breath [] Cardiovascular: Denies chest pain or edema [] GI: Abdominal pain, nausea, vomiting, denies bloody stools or diarrhea [] : Denies dysuria or hematuria [] Musculoskeletal: Denies back pain or joint pain [] Integument: Denies rash or skin lesions [] Neurologic: Denies headache, focal weakness or sensory changes [] Current Medications Current Medications Current Medications Medications (Trade) Dose Ordered Sig/Saad Start Time Stop Time Status Last Admin Dose Admin Famotidine (Pepcid) 20 mg 1X ONCE 12/08/16 00:30 12/08/16 00:31 DC 12/08/16 00:30 20 MG Morphine Sulfate (Morphine 4mg Syringe) 4 mg PRN Q15MIN PRN 12/08/16 00:15 12/09/16 00:14 12/08/16 00:38 4 MG Ondansetron HCl (Zofran) 4 mg 1X ONCE 12/08/16 00:30 12/08/16 00:31 DC 12/08/16 00:30 4 MG Sodium Chloride 1,000 ml @ 1,000 mls/hr Q1H 12/08/16 00:30 12/08/16 01:29 DC 12/08/16 00:30 1,000 MLS/HR Allergies Allergies Allergies Coded Allergies Type Severity Reaction Last Updated Verified procaine Allergy Intermediate 03/27/16 Yes pseudoephedrine Allergy Intermediate 03/27/16 Yes zolpidem Allergy Intermediate 03/27/16 Yes Physical Exam Physical Exam Constitutional: Alert, afebrile, appears in chronically poor health. [] HENT: Normocephalic, atraumatic, bilateral external ears normal, oropharynx moist, no oral exudates, nose normal. [] Eyes: PERRLA, EOMI, conjunctiva normal, no discharge. [] Neck: Normal range of motion, no tenderness, supple, no stridor. [] Cardiovascular:Heart rate regular rhythm, no murmur [] Lungs & Thorax: Bilateral breath sounds clear to auscultation [] Abdomen: Bowel sounds normal, soft, epigastric tenderness to palpation, no masses, no pulsatile masses. [] Skin: Warm, dry, no erythema, no rash. [] Back: No tenderness, no CVA tenderness. [] Extremities: No tenderness, no cyanosis, no clubbing, ROM intact, no edema. [] Neurologic: Alert and oriented X 3, normal motor function, normal sensory function, no focal deficits noted. [] Current Patient Data Lab Results Laboratory Tests Test 12/08/16 00:45 Sodium Level 140 mmol/L (136-145) Potassium Level 4.1 mmol/L (3.5-5.1) Chloride Level 103 mmol/L (98-107) Carbon Dioxide Level 33 mmol/L (21-32) H Anion Gap 4 (6-14) L Blood Urea Nitrogen 32 mg/dL (8-26) H Creatinine 1.4 mg/dL (0.7-1.3) H Estimated GFR (Cockcroft-Gault) 48.6 BUN/Creatinine Ratio 23 (6-20) H Glucose Level 195 mg/dL (70-99) H Calcium Level 8.7 mg/dL (8.5-10.1) Magnesium Level 2.5 mg/dL (1.8-2.4) H Total Bilirubin 0.3 mg/dL (0.2-1.0) Aspartate Amino Transferase (AST) 13 U/L (15-37) L Alanine Aminotransferase (ALT) 15 U/L (16-63) L Alkaline Phosphatase 77 U/L (46-116) Total Protein 6.7 g/dL (6.4-8.2) Albumin 3.6 g/dL (3.4-5.0) Albumin/Globulin Ratio 1.2 (1.0-1.7) Lipase 263 U/L (73-393) EKG EKG Not performed [] Radiology/Procedures Radiology/Procedures Not performed [] Course & Med Decision Making Course & Med Decision Making Pertinent Labs and Imaging studies reviewed. (See chart for details) The patient was given IV fluids, morphine, Zofran, and Pepcid. On reevaluation, patient states that his symptoms have significantly improved at this time. After speaking with the patient, he states that he would like to go home. Advised patient to continue on clear liquid diet at home and to continue on home medications for symptoms. Advised to keep his scheduled surgery in the next 2 days at [facility]. Advised return to the emergency department for any worsening symptoms. Patient voiced understanding and in agreement with treatment plan. Dragon Disclaimer Dragon Disclaimer This chart was dictated in whole or in part using Voice Recognition software in a busy, high-work load, and often noisy Emergency Department environment. It may contain unintended and wholly unrecognized errors or omissions. Departure Departure: Impression: Primary Impression: Nausea and vomiting Additional Impressions: Abdominal pain Hiatal hernia COPD (chronic obstructive pulmonary disease) Disposition: HOME, SELF-CARE Condition: IMPROVED Referrals: STANISLAV HATCH MD (PCP) Patient Instructions: Abdominal Pain (Nonspecific), Nausea and Vomiting Additional Instructions: Continue on a liquid diet at home as tolerated. Follow-up on December 10 as scheduled for your surgery. Return to the emergency department for any worsening symptoms. Problem Qualifiers Primary Impression: Nausea and vomiting Vomiting type: unspecified Vomiting Intractability: non-intractable Qualified Codes: R11.2 - Nausea with vomiting, unspecified Additional Impressions: Abdominal pain Abdominal location: epigastric Qualified Codes: R10.13 - Epigastric pain COPD (chronic obstructive pulmonary disease) COPD type: unspecified COPD Qualified Codes: J44.9 - Chronic obstructive pulmonary disease, unspecified RACHEL VAZQUEZ MD Dec 08, 2016 01:44
[2016-12-08 02:17] LABS: BACTERIA,URINE FEW /HPF (0-FEW); BILIRUBIN,URINE NEG (NEG); CLARITY,URINE CLEAR; COLOR,URINE YELLOW; GLUCOSE,URINE NEG (NEG); NITRITE,URINE NEG (NEG); RBC,URINE 0 /HPF (0-2); SQUAMOUS EPITHELIAL CELL,UR FEW /LPF; UROBILINOGEN,URINE 0.2 mg/dL (0.2 mg/dL); WBC,URINE 0 /HPF (0-4)
[2016-12-08 02:47] VITALS: BP 121/64
[2016-12-08 02:50] LABS: % BANDS 1 % (0-9); % LYMPHS 7 % (24-48); % SEGS 75 % (35-66)
[2016-12-08 02:51] LABS: % BASOS 1 % (0-3); % EOS 1 % (0-5); % MONOS 15 % (0-10); ANISOCYTOSIS PRESENT; HYPOCHROMIA PRESENT; MICROCYTOSIS PRESENT; PLT ESTIMATE DECREASED (ADEQUATE); POIKILOCYTOSIS PRESENT
== END 2016-12-08 02:47 | disposition home or self-care (01) ==
LOC: ER 23:28
DX: K44.9 Diaphragmatic hernia without obstruction or gangrene (principal); J44.9 Chronic obstructive pulmonary disease, unspecified; K21.9 Gastro-esophageal reflux disease without esophagitis; Z88.4 Allergy status to anesthetic agent; Z88.8 Allergy status to other drugs, medicaments and biological substances
CPT/HCPCS: 36415; 80053; 81001; 83690; 83735; 85007; 85027; 96361; 96374; 96375; 99284; J2270; J2405; S0028; J7030

== ENCOUNTER → 2017-04-10 | Outpatient (CLI) | payer MEDICARE, BC ==
[~2017-04-10] MED LIST changes: +PRED2.5T PO
--- NOTE | 2017-04-10 15:12 | RAD ---
CT of the chest without contrast 04/10/2017 Indication: COPD, pneumonia. Comparison study: CT of the chest without contrast July 20, 2016. Technique: Multidetector CT imaging of the chest was performed without the administration of contrast. Findings: Heart size is normal. No pericardial effusion is identified. Aortic calcification is noted. Dense calcification of the aortic valve is seen. Scattered small mediastinal lymph nodes are noted without evidence of pathologically enlarged mediastinal adenopathy. Surgical clips are noted just below the diaphragm. There is been repair of the patient's previously seen hiatal hernia. There is mild elevation of left hemidiaphragm. Limited visualization of the upper abdomen demonstrates no acute changes. Right-sided nephrolithiasis versus vascular calcification noted. There is a small left pleural effusion with underlying atelectasis. Severe emphysematous changes are noted throughout the lungs. Bullous changes are noted in the lung apex. There is a 5 mm noncalcified nodule right upper lobe, previously obscured by atelectasis (axial image 22). Tree-in-bud opacities are seen in the right lower lobe however this is decreased since prior chest radiograph. Nodular opacities are seen in the right lower lobe, somewhat decreased since comparison study is well. Multiple areas of bronchiectasis are seen most prominent lower lobes. Multiple areas of bronchial obstruction are seen in the left lower lobe which could represent mucous plugging. Bronchitis could have this appearance. A component of lower lobe atelectasis could therefore also be postobstructive. Diffuse osteopenia is noted. Diffuse degenerative changes of the thoracic spine are seen. No acute osseous abnormality is not identified. Impression: 1. Small left pleural effusion with underlying atelectasis 2. Improving but persistent tree-in-bud infiltrates in the right lower lobe 3. Multiple right lower lobe pulmonary nodules less prominent than on comparison study 4. Lower lobe predominant bronchiectasis with multiple areas of bronchial obstruction particularly in the left lower lobe. This could represent proctitis or mucus plugging. 5. 5 mm noncalcified nodule right upper lobe, previously obscured. 6. Given findings consider six-month follow-up CT chest should ensure resolution infiltrates and/or stability of nodules.
== END | disposition home or self-care (01) ==
LOC: CT 14:07
PROVIDERS: ATTEND Family Medicine
DX: J44.9 Chronic obstructive pulmonary disease, unspecified (principal); J18.1 Lobar pneumonia, unspecified organism; J90 Pleural effusion, not elsewhere classified; J98.6 Disorders of diaphragm; J98.09 Other diseases of bronchus, not elsewhere classified; R91.8 Other nonspecific abnormal finding of lung field; I70.0 Atherosclerosis of aorta; M85.80 Other specified disorders of bone density and structure, unspecified site; M47.894 Other spondylosis, thoracic region; Z87.891 Personal history of nicotine dependence
CPT/HCPCS: 71250

== ENCOUNTER 2017-04-11 15:55 | Inpatient (IN) | payer MEDICARE, BC ==
[~2017-04-11] VITALS: Ht 185.4 cm; Wt 78.2 kg
[~2017-04-11 15:55] MED LIST changes: -PRED2.5T PO
[2017-04-11] MEDS: IV NORMAL SALINE 1,000ML 1,000 ML IV SCH (16:45)
[2017-04-11 17:10] VITALS: BP 101/64
[2017-04-11 17:18] LABS: BASO # 0.1 x10^3/uL (0.0-0.2); BASO % 1 % (0-3); EOS % 0 % (0-3); HEMATOCRIT 30.4 % (39.0-53.0); HEMOGLOBIN 9.6 g/dL (13.0-17.5); LYMPH # 0.6 x10^3/uL (1.0-4.8); LYMPH % 8 % (24-48); MEAN CORPUSCULAR HEMOGLOBIN 23 pg (25-35); MEAN CORPUSCULAR HGB CONC 32 g/dL (31-37); MEAN CORPUSCULAR VOLUME 74 fL (79-100); MONO # 1.9 x10^3/uL (0.0-1.1); MONO % 26 % (0-9); NEUT # 4.7 x10^3uL (1.8-7.7); NEUT % 64 % (31-73); PLATELET COUNT 116 x10^3/uL (140-400); RED BLOOD COUNT 4.12 x10^6/uL (4.30-5.70); RED CELL DISTRIBUTION WIDTH 18.9 % (11.5-14.5); WHITE BLOOD COUNT 7.3 x10^3/uL (4.0-11.0)
[2017-04-11 17:23] LABS: ALBUMIN 3.3 g/dL (3.4-5.0); C REACTIVE PROTEIN 22.5 mg/L (0-3.3); CALCIUM 8.4 mg/dL (8.5-10.1); CREATININE 1.9 mg/dL (0.7-1.3); GFR 34.2; MAGNESIUM 2.1 mg/dL (1.8-2.4); POTASSIUM 4.9 mmol/L (3.5-5.1); TOTAL BILIRUBIN 0.5 mg/dL (0.2-1.0); TOTAL PROTEIN 6.6 g/dL (6.4-8.2)
[2017-04-11] MEDS ORDERED: ALBUTEROL SULFATE 8GM INHALER. INH PRN (18:00)
[2017-04-11] MEDS ORDERED: PROCHLORPERAZINE 10 MG TABLET. PO PRN (18:00)
[2017-04-11] MEDS ORDERED: ALBUTEROL SULFATE 2.5 MG/3 ML NEBU. NEB PRN (18:15)
--- NOTE | 2017-04-11 18:31 | RAD ---
History: Fall previous night, pain. Comparison: None. Findings: AP, lateral, and oblique views of the left ankle. There is an obliquely oriented fracture involving the distal fibular shaft superior to the ankle mortise (Perez C). There is 1/4 shaft width lateral displacement of the distal fragment. There is associated soft tissue swelling. No significant ankle mortise widening is identified. Impression: Acute distal fibular fracture. Electronically signed by: Luca Kirkpatrick MD (04/11/2017 6:28 PM) [facility]
--- NOTE | 2017-04-11 18:33 | RAD ---
PA and lateral chest radiograph. History: Fell previous night, right-sided pain and pneumonia. Comparison: None. Findings: Cardiomediastinal silhouette is within normal limits for size. Aortic atherosclerosis is seen. No pneumothorax is identified. There may be small left pleural effusion. Emphysematous changes of lungs are seen. No focal consolidation is identified. No displaced rib fractures are identified. Impression: 1. Question left pleural effusion Electronically signed by: Luca Kirkpatrick MD (04/11/2017 6:30 PM) [facility]
--- NOTE | 2017-04-11 18:34 | RAD ---
History: Pain, fell previous night. Comparison: None. Findings: AP, lateral, and oblique views of the left knee. No acute fracture or dislocation is identified. Mild tricompartment degeneration is seen. No joint effusion is identified. Quadriceps tendon insertional enthesophyte is present. Chondrocalcinosis is seen. Arterial calcifications are present. AP, lateral, and oblique views of the right knee. No acute fracture or dislocation is identified. No joint effusion is seen. Mild tricompartment degeneration is present. Chondrocalcinosis is seen. Arterial calcifications are present. Impression: No acute osseous traumatic injury identified in either knee. Electronically signed by: Luca Kirkpatrick MD (04/11/2017 6:31 PM) [facility]
[2017-04-11 19:12] VITALS: BP 100/60
[2017-04-11 19:42] LABS: SEDIMENTATION RATE 11 (0-15)
[2017-04-11] MEDS: ACETAMINOPHEN 325 MG TABLET PO PRN (19:50)
[2017-04-11 21:29] LABS: BGAS PH 7.45 (7.35-7.46)
[2017-04-11] MEDS: IPRATRPIUM/ALBUTEROL 0.5/2.5MG 3 ML NEBU. NEB SCH (21:41)
[2017-04-11 23:01] VITALS: BP 114/68
[2017-04-11 23:44] LABS: CLARITY,URINE CLEAR; COLOR,URINE YELLOW
[2017-04-11 23:45] LABS: BACTERIA,URINE FEW /HPF (0-FEW); BILIRUBIN,URINE NEG (NEG); GLUCOSE,URINE NEG (NEG); NITRITE,URINE NEG (NEG); RBC,URINE OCC /HPF (0-2); SQUAMOUS EPITHELIAL CELL,UR OCC /LPF; UROBILINOGEN,URINE 0.2 mg/dL (0.2 mg/dL); WBC,URINE OCC /HPF (0-4)
[2017-04-11 23:46] LABS: HYALINE CASTS, URINE FEW /HPF
[2017-04-12] MEDS: IV NORMAL SALINE 1,000ML 1,000 ML IV SCH ×2 (04:11→19:25)
[2017-04-12] MEDS: ACETAMINOPHEN 325 MG TABLET PO PRN ×2 (04:12→22:29)
[2017-04-12] MEDS: IPRATRPIUM/ALBUTEROL 0.5/2.5MG 3 ML NEBU. NEB SCH ×3 (05:17→10:02)
[2017-04-12 05:26] VITALS: BP 116/71
[2017-04-12] MEDS: ASPIRIN 81 MG TAB.CHEW PO SCH (07:33)
[2017-04-12] MEDS ORDERED: CETIRIZINE HCL 10 MG TABLET PO SCH (09:00)
[2017-04-12] MEDS ORDERED: FUROSEMIDE 20 MG TABLET PO SCH (09:00)
[2017-04-12] MEDS ORDERED: TAMSULOSIN 0.4 MG CAP.ER.24H. PO SCH (09:00)
[2017-04-12] MEDS ORDERED: PANTOPRAZOLE 40 MG TABLET. PO SCH (09:00)
[2017-04-12] MEDS ORDERED: CHOLECALCIFEROL (VITAMIN D3) 1,000 UNIT TABLET PO SCH (09:00)
[2017-04-12] MEDS ORDERED: BUMETANIDE 1 MG TABLET PO SCH (09:00)
[2017-04-12] MEDS: MULTIVITAMIN with MINERAL TABLET. PO SCH (09:03)
[2017-04-12] MEDS: OMEGA-3 FATTY ACIDS/FISH OIL 1,000 MG CAPSULE. PO SCH (09:03)
[2017-04-12] MEDS: IBRUTINIB 140 MG PO SCH (09:03)
[2017-04-12] MEDS: MELOXICAM 15 MG TABLET. PO SCH (09:03)
[2017-04-12] MEDS ORDERED: PRED2.5T PO (09:28)
[2017-04-12 10:50] VITALS: BP 94/63
[2017-04-12 15:17] VITALS: BP 115/65
[2017-04-12 18:15] VITALS: BP 103/53
[2017-04-12 23:33] VITALS: BP 102/65
[2017-04-13] MEDS: ACETAMINOPHEN 325 MG TABLET PO PRN ×2 (04:47→23:54)
[2017-04-13 04:52] VITALS: BP 92/56
[2017-04-13] MEDS: IPRATRPIUM/ALBUTEROL 0.5/2.5MG 3 ML NEBU. NEB SCH ×3 (05:08→21:08)
[2017-04-13 05:58] LABS: ALBUMIN 2.8 g/dL (3.4-5.0); ALBUMIN/GLOBULIN RATIO 0.8 (1.0-1.7); CALCIUM 8.2 mg/dL (8.5-10.1); CREATININE 1.4 mg/dL (0.7-1.3); GFR 48.6; POTASSIUM 4.3 mmol/L (3.5-5.1); TOTAL BILIRUBIN 0.6 mg/dL (0.2-1.0); TOTAL PROTEIN 6.1 g/dL (6.4-8.2)
[2017-04-13 06:15] LABS: BASO # 0.1 x10^3/uL (0.0-0.2); BASO % 1 % (0-3); EOS # 0.2 x10^3/uL (0.0-0.7); EOS % 3 % (0-3); HEMOGLOBIN 9.8 g/dL (13.0-17.5); LYMPH # 0.7 x10^3/uL (1.0-4.8); LYMPH % 11 % (24-48); MEAN CORPUSCULAR HEMOGLOBIN 24 pg (25-35); MEAN CORPUSCULAR HGB CONC 32 g/dL (31-37); MEAN CORPUSCULAR VOLUME 74 fL (79-100); MONO # 2.2 x10^3/uL (0.0-1.1); MONO % 33 % (0-9); NEUT # 3.4 x10^3uL (1.8-7.7); NEUT % 52 % (31-73); PLATELET COUNT 101 x10^3/uL (140-400); RED BLOOD COUNT 4.17 x10^6/uL (4.30-5.70); RED CELL DISTRIBUTION WIDTH 18.9 % (11.5-14.5); WHITE BLOOD COUNT 6.5 x10^3/uL (4.0-11.0)
[2017-04-13 07:17] LABS: % BASOS 3 % (0-3); % EOS 3 % (0-5); % LYMPHS 27 % (24-48); % MONOS 22 % (0-10); % SEGS 45 % (35-66)
[2017-04-13 07:18] LABS: ANISOCYTOSIS SLIGHT; HYPOCHROMIA SLIGHT; OVALOCYTES OCC; PLT ESTIMATE DECREASED (ADEQUATE); POIKILOCYTOSIS SLIGHT; POLYCHROMASIA SLIGHT; TOXIC VACUOLATION SLIGHT
[2017-04-13 07:19] LABS: HYPERSEGS PRESENT; MICROCYTOSIS SLIGHT
[2017-04-13] MEDS: ASPIRIN 81 MG TAB.CHEW PO SCH (09:00)
[2017-04-13] MEDS: OMEGA-3 FATTY ACIDS/FISH OIL 1,000 MG CAPSULE. PO SCH (09:17)
[2017-04-13] MEDS: predniSONE 5 MG TABLET PO SCH (09:17)
[2017-04-13] MEDS: MELOXICAM 15 MG TABLET. PO SCH (09:17)
[2017-04-13] MEDS: MULTIVITAMIN with MINERAL TABLET. PO SCH (09:17)
[2017-04-13] MEDS: IBRUTINIB 140 MG PO SCH (09:17)
[2017-04-13] MEDS: IV NORMAL SALINE 1,000ML 1,000 ML IV SCH ×2 (09:34→23:17)
[2017-04-13 13:12] VITALS: BP 86/54
[2017-04-13 15:51] VITALS: BP 103/60
[2017-04-13] MEDS: CALCIUM CARB/VIT D3 500/200 TABLET PO SCH (17:03)
[2017-04-13 20:02] VITALS: BP 98/62
--- NOTE | 2017-04-13 22:41 | PN ---
DATE: 04/13/2017 SUBJECTIVE: The patient in with generalized weakness, hypotension, fracture to his left fibula. The patient also had acute renal failure, better hydrated. He is feeling a little better, does not have much pain, but there is fibular fracture. The patient otherwise seems to be resting fairly comfortably. OBJECTIVE: VITAL SIGNS: Blood pressure 92/56, respiratory rate 18, pulse 67, afebrile. GENERAL: The patient is alert and oriented. LUNGS: Diminished, but clear. CARDIOVASCULAR: Regular sinus rhythm. ABDOMEN: Soft, nontender. EXTREMITIES: Left lower leg swollen and erythematous. LABORATORY DATA: We will go ahead and continue to monitor him there. Electrolytes and chemistries look good. Hemoglobin stable at 9.8 and 31. Creatinine has come down from 1.9 to 1.4. IMPRESSION: Therefore, dehydration, acute renal failure, fracture to the left fibular from fall at home, history of chronic obstructive pulmonary disease, inguinal hernia, oxygen dependent chronic obstructive pulmonary disease. PLAN: We will try to get an orthopedic consult and make further evaluation on him as indicated. STANISLAV HATCH MD DR: LUDY/ciro JOB#: [id number] / [id number]
[2017-04-13 23:18] VITALS: BP 129/89
[2017-04-14] MEDS ORDERED: Influenza vaccine per PROTOCOL. MC PRN (02:30)
[2017-04-14] MEDS: ACETAMINOPHEN 325 MG TABLET PO PRN ×2 (04:07→23:09)
[2017-04-14 05:36] VITALS: BP 105/56
[2017-04-14] MEDS: IPRATRPIUM/ALBUTEROL 0.5/2.5MG 3 ML NEBU. NEB SCH ×3 (05:36→20:50)
[2017-04-14] MEDS: ASPIRIN 81 MG TAB.CHEW PO SCH (09:00)
[2017-04-14] MEDS ORDERED: FLU VACC QS2017-18 (36MOS+)/PF 0.5 ML SYRINGE. VAX IM ONE (09:00)
[2017-04-14] MEDS: MULTIVITAMIN with MINERAL TABLET. PO SCH (09:32)
[2017-04-14] MEDS: OMEGA-3 FATTY ACIDS/FISH OIL 1,000 MG CAPSULE. PO SCH (09:32)
[2017-04-14] MEDS: CALCIUM CARB/VIT D3 500/200 TABLET PO SCH ×2 (09:32→17:38)
[2017-04-14] MEDS: predniSONE 5 MG TABLET PO SCH (09:32)
[2017-04-14] MEDS: MELOXICAM 15 MG TABLET. PO SCH (09:32)
[2017-04-14] MEDS: IBRUTINIB 140 MG PO SCH (09:34)
[2017-04-14] MEDS: IV NORMAL SALINE 1,000ML 1,000 ML IV SCH (11:25)
[2017-04-14 11:30] VITALS: BP 95/59
[2017-04-14 15:00] VITALS: BP 102/64
[2017-04-14] MEDS ORDERED: POLYETHYLENE GLYCOL 3350 17 GM PACKET. PO PRN (17:00)
[2017-04-14] MEDS: ENOXAPARIN 40 MG/0.4 ML DISP.SYRIN. SQ SCH (18:18)
[2017-04-14 20:28] VITALS: BP 110/62
[2017-04-14 23:39] VITALS: BP 104/62
--- NOTE | 2017-04-15 00:40 | PN ---
DATE: SUBJECTIVE: The patient comes in with a fracture to his lower leg and marked contusion to the lower left leg as well. The patient says he does not have any pain. OBJECTIVE: VITAL SIGNS: Blood pressure 102/64, respiratory rate 22, pulse 66 and afebrile. LUNGS: Diminished, but clear. CARDIOVASCULAR: Stable. ABDOMEN: Soft. EXTREMITIES: Lower leg, markedly erythematous, looks almost hard and red. He has multiple abrasions to that leg from the fall itself. We will put him on vancomycin in case there are any signs of infection. We will try to consult with the orthopedics and see what they have to say about the leg itself. It is fibular or tibial ____, therefore it should not be a major problem. He says he has no pain and still able to walk, but we will do a venous Doppler on the leg and make sure there is no clot in it. IMPRESSION: Fracture of the lower left leg, multiple contusions to the lower left leg, and possible cellulitis to the lower left leg. PLAN: As above. STANISLAV HATCH MD DR: LUDY/ciro JOB#: [id number] / [id number]
[2017-04-15] MEDS: IPRATRPIUM/ALBUTEROL 0.5/2.5MG 3 ML NEBU. NEB SCH ×3 (05:56→20:13)
[2017-04-15 06:21] VITALS: BP 134/71
[2017-04-15] MEDS: CALCIUM CARB/VIT D3 500/200 TABLET PO SCH ×2 (08:03→17:13)
[2017-04-15] MEDS: IBRUTINIB 140 MG PO SCH (08:04)
[2017-04-15] MEDS: MULTIVITAMIN with MINERAL TABLET. PO SCH (08:05)
[2017-04-15] MEDS: ASPIRIN 81 MG TAB.CHEW PO SCH (08:05)
[2017-04-15] MEDS: OMEGA-3 FATTY ACIDS/FISH OIL 1,000 MG CAPSULE. PO SCH (08:05)
[2017-04-15] MEDS: MELOXICAM 15 MG TABLET. PO SCH (08:05)
[2017-04-15] MEDS: predniSONE 5 MG TABLET PO SCH (08:05)
[2017-04-15] MEDS: ACETAMINOPHEN 325 MG TABLET PO PRN (08:06)
[2017-04-15 10:50] VITALS: BP 105/61
[2017-04-15 14:59] VITALS: BP 101/64
[2017-04-15] MEDS: ENOXAPARIN 40 MG/0.4 ML DISP.SYRIN. SQ SCH (17:13)
--- NOTE | 2017-04-15 17:51 | RAD ---
INDICATION: Left leg swelling COMPARISON: None. TECHNIQUE: Grayscale, color and doppler ultrasound images were obtained of the left lower extremity venous vasculature. LEFT: No thrombus identified in the common femoral vein, femoral vein, popliteal vein or visualized calf veins. Mild edema in soft tissues. IMPRESSION: 1. No thrombus identified in deep venous system of the left lower extremity.
[2017-04-15 20:04] VITALS: BP 117/62
[2017-04-16 00:32] VITALS: BP 124/69
[2017-04-16] MEDS: ACETAMINOPHEN 325 MG TABLET PO PRN (01:36)
[2017-04-16 05:47] VITALS: BP 108/70
[2017-04-16] MEDS: IPRATRPIUM/ALBUTEROL 0.5/2.5MG 3 ML NEBU. NEB SCH (05:52)
[2017-04-16] MEDS: CALCIUM CARB/VIT D3 500/200 TABLET PO SCH (07:45)
[2017-04-16] MEDS: ASPIRIN 81 MG TAB.CHEW PO SCH (07:46)
[2017-04-16] MEDS: IBRUTINIB 140 MG PO SCH (07:46)
[2017-04-16] MEDS: predniSONE 5 MG TABLET PO SCH (07:47)
[2017-04-16] MEDS: OMEGA-3 FATTY ACIDS/FISH OIL 1,000 MG CAPSULE. PO SCH (07:47)
[2017-04-16] MEDS: MULTIVITAMIN with MINERAL TABLET. PO SCH (07:47)
[2017-04-16] MEDS: MELOXICAM 15 MG TABLET. PO SCH (07:47)
[2017-04-16 10:13] VITALS: BP 97/56
[2017-04-16 13:28] VITALS: BP 100/63
--- NOTE | 2017-05-01 23:45 | DS ---
DATE OF DISCHARGE: 04/16/2017 HOSPITAL COURSE: An 81-year-old gentleman initially seen in the office apparently he had been falling, fell the day before and had multiple cuts and bruises to his knees. The patient also was noted to have marked inflammation to the left lower leg with appeared to be cellulitis. His blood pressure was low at 78/58. The patient was admitted to the hospital for further evaluation and treatment. He has been feeling tired and worn out and he was admitted for further evaluation and treatment of these multiplicity of medical problems. The patient while in the hospital has taken most of his blood pressure medications. He was started on vancomycin for the cellulitis to the left lower leg. The patient's blood pressure gradually came up. He did suffer fracture of the lower left leg, multiple contusions to the lower left leg and possible cellulitis. The fracture was to the fibular, was in good approximation, it is a strut bone, not a support bone and he said he did not have any pain at all with the fracture. In any case, the patient made a good progress during the rest of his hospitalization. Hemoglobin remained about 9 and 31 and did show low albumin of 2.8, creatinine dropped from 1.9-1.4 demonstrating some degree of dehydration. In any case, the patient made excellent progress and was transferred to the skilled unit. IMPRESSION: Falls at home secondary to hypotension, dehydration, multiple contusions to the left lower leg, fracture to the left fibula distal, cellulitis to the left lower leg, acute renal failure, moderate to severe protein malnutrition. The patient will be kept on IV vancomycin, a heart healthy diet and actually he was transferred to the Skilled Unit at [facility] for continued rehabilitation care. He will be seeing an orthopedic surgeon as an outpatient and make further evaluation once he is evaluated there. See MRAD. Decreased activity and diet as tolerated. STANISLAV HATCH MD DR: LUDY/ciro JOB#: [id number] / [id number]
== END 2017-04-16 14:15 | DRG 314 ==
LOC: 1 SOUTH 15:55
PROVIDERS: ADMIT Family Medicine; ATTEND Family Medicine
DX: I95.9 Hypotension, unspecified (principal); N17.0 Acute kidney failure with tubular necrosis; J96.10 Chronic respiratory failure, unspecified whether with hypoxia or hypercapnia; L03.116 Cellulitis of left lower limb; J98.11 Atelectasis; S82.402A Unspecified fracture of shaft of left fibula, initial encounter for closed fracture; Z99.81 Dependence on supplemental oxygen; E86.0 Dehydration; J44.9 Chronic obstructive pulmonary disease, unspecified; W18.39XA Other fall on same level, initial encounter; K40.90 Unilateral inguinal hernia, without obstruction or gangrene, not specified as recurrent; S20.219A Contusion of unspecified front wall of thorax, initial encounter; S80.02XA Contusion of left knee, initial encounter; S90.02XA Contusion of left ankle, initial encounter; Z88.8 Allergy status to other drugs, medicaments and biological substances; Z85.72 Personal history of non-Hodgkin lymphomas; Z90.49 Acquired absence of other specified parts of digestive tract; Z80.0 Family history of malignant neoplasm of digestive organs; Z87.891 Personal history of nicotine dependence; Z91.89 Other specified personal risk factors, not elsewhere classified; Y93.89 Activity, other specified; Y99.8 Other external cause status; Y92.098 Other place in other non-institutional residence as the place of occurrence of the external cause
CPT/HCPCS: 36415; 36600; 71020; 71250; 73562; 73610; 80053; 81001; 82803; 83605; 83735; 85007; 85025; 85610; 85651; 86140; 87040; 90686; 93971; 94640; 94760; J1650; J1956; J7512; J7613; J7620; 97530; J7030

== ENCOUNTER 2017-04-23 03:38 | Inpatient (IN) | payer MEDICARE, BC ==
[~2017-04-23] VITALS: Ht 193 cm; Wt 79.5 kg
[~2017-04-23 03:38] MED LIST changes: +PRED2.5T PO
[2017-04-23 04:07] LABS: BASO # 0.1 x10^3/uL (0.0-0.2); BASO % 1 % (0-3); EOS % 0 % (0-3); HEMATOCRIT 29.6 % (39.0-53.0); HEMOGLOBIN 9.3 g/dL (13.0-17.5); LYMPH # 0.7 x10^3/uL (1.0-4.8); LYMPH % 7 % (24-48); MEAN CORPUSCULAR HEMOGLOBIN 23 pg (25-35); MEAN CORPUSCULAR HGB CONC 31 g/dL (31-37); MEAN CORPUSCULAR VOLUME 74 fL (79-100); MONO % 21 % (0-9); NEUT # 6.7 x10^3uL (1.8-7.7); NEUT % 70 % (31-73); PLATELET COUNT 129 x10^3/uL (140-400); RED BLOOD COUNT 3.99 x10^6/uL (4.30-5.70); RED CELL DISTRIBUTION WIDTH 19.9 % (11.5-14.5); WHITE BLOOD COUNT 9.6 x10^3/uL (4.0-11.0)
[2017-04-23 04:21] LABS: ALBUMIN 2.9 g/dL (3.4-5.0); ALBUMIN/GLOBULIN RATIO 0.9 (1.0-1.7); CALCIUM 8.7 mg/dL (8.5-10.1); CREATININE 1.2 mg/dL (0.7-1.3); GFR 58.1; POTASSIUM 4.2 mmol/L (3.5-5.1); TOTAL BILIRUBIN 0.8 mg/dL (0.2-1.0); TOTAL PROTEIN 6.2 g/dL (6.4-8.2)
[2017-04-23 04:23] LABS: % BANDS 12 % (0-9); % LYMPHS 8 % (24-48); % MONOS 8 % (0-10); % SEGS 72 % (35-66); ANISOCYTOSIS SLIGHT; HYPOCHROMIA SLIGHT; MICROCYTOSIS SLIGHT; PLT ESTIMATE DECREASED (ADEQUATE)
[2017-04-23] MEDS ORDERED: IV NORMAL SALINE 1,000ML 1,000 ML IV ONE (04:30)
[2017-04-23] MEDS ORDERED: IPRATRPIUM/ALBUTEROL 0.5/2.5MG 3 ML NEBU. NEB ONE (04:30)
[2017-04-23] MEDS ORDERED: methylPREDNISolone SOD SUCC PF 125 MG/2 ML VIAL. IV ONE (04:30)
[2017-04-23] MEDS ORDERED: IV NORMAL SALINE 50ML 50 ML ONE (05:00)
[2017-04-23] MEDS ORDERED: CEFEPIME HCL 1 GM VIAL ONE (05:00)
[2017-04-23] MEDS ORDERED: VANCOMYCIN PER PHARMACY MC PRN (05:00)
--- NOTE | 2017-04-23 05:10 | PHYS DOC ---
Past History Past Medical History: Arthritis, Cancer, COPD, Diverticulitis, GERD, Pneumonia , Other Past Surgical History: Tonsillectomy, Other Alcohol Use: None Drug Use: None Adult General Chief Complaint Chief Complaint: SHORTNESS OF BREATH HPI HPI He 1-year-old male with a history of COPD who is currently in a [facility] facility on 2 L home O2 now sent for evaluation or productive cough and increasing shortness of breath and hypoxia in the high 80s. Patient denies chest pain. Denies orthopnea. He has some chronic weeping lower extremities which she states are unchanged. His left leg is been swollen recently but a recent Doppler was negative. Brought in by EMS 88% on his baseline 2 L. Supplemental oxygen increased to 3 L with which patient improved. Mild wheezing. Patient was admitted for pneumonia and COPD exacerbation by his primary care doctor, Dr. Sexton and discharged home on March 30. Review of Systems Review of Systems Constitutional: Denies fever or chills [] Eyes: Denies change in visual acuity, redness, or eye pain [] HENT: Denies nasal congestion or sore throat [] Respiratory: Denies cough or shortness of breath [] Cardiovascular: No additional information not addressed in HPI [] GI: Denies abdominal pain, nausea, vomiting, bloody stools or diarrhea [] : Denies dysuria or hematuria [] Musculoskeletal: Denies back pain or joint pain [] Integument: Denies rash or skin lesions [] Neurologic: Denies headache, focal weakness or sensory changes [] Endocrine: Denies polyuria or polydipsia [] Current Medications Current Medications Current Medications Medications (Trade) Dose Ordered Sig/Saad Start Time Stop Time Status Last Admin Dose Admin Albuterol/ Ipratropium (Duoneb) 3 ml 1X ONCE 04/23/17 04:30 04/23/17 04:31 DC 04/23/17 04:12 3 ML Cefepime HCl 1 gm/ Sodium Chloride 50 ml @ 100 mls/hr Q8HRS 04/23/17 06:00 UNV Methylprednisolone Sodium Succinate (SOLU-Medrol 125MG VIAL) 125 mg 1X ONCE 04/23/17 04:30 04/23/17 04:31 DC 04/23/17 04:11 125 MG Sodium Chloride 1,000 ml @ 1,000 mls/hr Q1H 04/23/17 22:30 UNV Vancomycin HCl (Vanco Per Pharmacy) 1 each PRN DAILY PRN 04/23/17 05:00 UNV Allergies Allergies Allergies Coded Allergies Type Severity Reaction Last Updated Verified procaine Allergy Intermediate 03/27/16 Yes pseudoephedrine Allergy Intermediate 03/27/16 Yes zolpidem Allergy Intermediate 03/27/16 Yes Physical Exam Physical Exam Constitutional: Chronically ill appearing cachectic cranky elderly male HENT: Normocephalic, atraumatic, bilateral external ears normal, oropharynx mildly dry, no oral exudates, nose normal. [] Eyes: PERRLA, EOMI, conjunctiva normal, no discharge. [] Neck: Normal range of motion, no tenderness, supple, no stridor. [] Cardiovascular:Heart rate regular rhythm, no murmur [] Lungs & Thorax: Bilateral breath sounds with scattered rhonchi, no Rales, mild bilateral wheezes resolved after nebulized therapy Abdomen: Bowel sounds normal, soft, no tenderness, no masses, no pulsatile masses. [] Skin: Warm, dry, no erythema, no rash. [] Back: No tenderness, no CVA tenderness. [] Extremities: No tenderness, no cyanosis, no clubbing, ROM intact, no edema. [] Neurologic: Alert and oriented., normal motor function except patient is generally weak 4-5 with no focal deficit, normal sensory function, no focal deficits noted. [] Psychologic: Affect is flat, judgement normal, mood irritable. [] Current Patient Data Vital Signs Vital Signs Date Time Temp Pulse Resp B/P (MAP) Pulse Ox O2 Delivery O2 Flow Rate FiO2 04/23/17 04:36 96 22 106/46 (66) 90 3.0 04/23/17 03:38 99.5 Room Air Lab Results Laboratory Tests Test 04/23/17 03:53 White Blood Count 9.6 x10^3/uL (4.0-11.0) Red Blood Count 3.99 x10^6/uL (4.30-5.70) L Hemoglobin 9.3 g/dL (13.0-17.5) L Hematocrit 29.6 % (39.0-53.0) L Mean Corpuscular Volume 74 fL (79-100) L Mean Corpuscular Hemoglobin 23 pg (25-35) L Mean Corpuscular Hemoglobin Concent 31 g/dL (31-37) Red Cell Distribution Width 19.9 % (11.5-14.5) H Platelet Count 129 x10^3/uL (140-400) L Neutrophils (%) (Auto) 70 % (31-73) Lymphocytes (%) (Auto) 7 % (24-48) L Monocytes (%) (Auto) 21 % (0-9) H Eosinophils (%) (Auto) 0 % (0-3) Basophils (%) (Auto) 1 % (0-3) Neutrophils # (Auto) 6.7 x10^3uL (1.8-7.7) Lymphocytes # (Auto) 0.7 x10^3/uL (1.0-4.8) L Monocytes # (Auto) 2.0 x10^3/uL (0.0-1.1) H Eosinophils # (Auto) 0.0 x10^3/uL (0.0-0.7) Basophils # (Auto) 0.1 x10^3/uL (0.0-0.2) Segmented Neutrophils % 72 % (35-66) H Band Neutrophils % 12 % (0-9) H Lymphocytes % 8 % (24-48) L Monocytes % 8 % (0-10) Platelet Estimate Decreased (ADEQUATE) Hypochromasia Slight Anisocytosis Slight Microcytosis Slight Sodium Level 138 mmol/L (136-145) Potassium Level 4.2 mmol/L (3.5-5.1) Chloride Level 103 mmol/L (98-107) Carbon Dioxide Level 27 mmol/L (21-32) Anion Gap 8 (6-14) Blood Urea Nitrogen 26 mg/dL (8-26) Creatinine 1.2 mg/dL (0.7-1.3) Estimated GFR (Cockcroft-Gault) 58.1 BUN/Creatinine Ratio 22 (6-20) H Glucose Level 93 mg/dL (70-99) Calcium Level 8.7 mg/dL (8.5-10.1) Total Bilirubin 0.8 mg/dL (0.2-1.0) Aspartate Amino Transferase (AST) 14 U/L (15-37) L Alanine Aminotransferase (ALT) 13 U/L (16-63) L Alkaline Phosphatase 72 U/L (46-116) Troponin I Quantitative 0.022 ng/mL (0-0.055) Total Protein 6.2 g/dL (6.4-8.2) L Albumin 2.9 g/dL (3.4-5.0) L Albumin/Globulin Ratio 0.9 (1.0-1.7) L EKG EKG EKG with normal sinus rhythm in a bigeminy at a rate of 104 left axis deviation no STEMI interpreted by me[] Radiology/Procedures Radiology/Procedures Hyperinflation chronic changes, congestive changes, patchy infiltrates bilateral , interpreted by me[] Course & Med Decision Making Course & Med Decision Making Pertinent Labs and Imaging studies reviewed. (See chart for details) Signs and symptoms consistent with COPD exacerbation in the setting of infectious prodrome with productive cough. Patient afebrile. He is at his baseline mental status per staff. Findings consistent with mild COPD exacerbation with bilateral wheezing resolved after nebulized therapy and steroids administered. Chest x-ray with patchy infiltrates. Blood cultures drawn as well as lactic acid. Sputum culture will be obtained when available. Coverage initiated for healthcare acquired pneumonia coverage. Case discussed with patient's primary care doctor, Dr. Sexton. He is aware the history and findings and agrees with inpatient admission to his service for further workup and treatment as needed. [] Dragon Disclaimer Dragon Disclaimer This chart was dictated in whole or in part using Voice Recognition software in a busy, high-work load, and often noisy Emergency Department environment. It may contain unintended and wholly unrecognized errors or omissions. Departure Departure: Impression: Primary Impression: COPD exacerbation Additional Impressions: Pneumonia Hypoxia Disposition: ADMITTED INPATIENT Admitting Physician: Robbie Sexton Condition: IMPROVED Referrals: ROBBIE SEXTON MD (PCP) Problem Qualifiers SARAH DIAZ MD Apr 23, 2017 05:10
[2017-04-23] MEDS: IV NORMAL SALINE 1,000ML 1,000 ML IV SCH ×3 (05:30→20:43)
[2017-04-23] MEDS ORDERED: VANCOMYCIN 2 GM in IV NORMAL SALINE 500ML 500 ML IV ONE ×2 (05:30→08:00)
[2017-04-23] MEDS: CEFEPIME HCL 1 GM in IV NORMAL SALINE 50ML 50 ML IV SCH ×2 (05:33→20:39)
--- NOTE | 2017-04-23 06:03 | EKG ---
[address] [address] Test Date: 2017-04-23 Test Time: 04:03:19 Pat Name: IGNACIO ELIZONDO Department: Room: Gender: M Security Rep: TASHIA : [id number] Requested By: SARAH DIAZ Order Number: [id number] Reading MD: Ty Newton Measurements Intervals [place] Rate: 104 P: CO: QRS: -73 QRSD: 124 T: 78 QT: 386 QTc: 515 Interpretive Statements SR PVC RBBB CANNOT RULE OUT ANTEROSEPTAL INFARCT POOR R-WAVE PROGRESSION Electronically Signed On 04-24-2017 14:16:58 CDT by Ty Newton
[2017-04-23 06:20] VITALS: BP 103/56
--- NOTE | 2017-04-23 06:20 | NUR ---
Pt admitted to [address] [place] [address] from ER via [facility], accompanied by EMS and nursing staff. Admission assessment completed. Pt states that chief complaint is pneumonia, cough & shortness of breath. Pt here recently for fall with left distal fib fx. Pt with 3+ edema to lower leg. Pt with BLE dressings to wounds and with some scabs and bruising noted. Pictures taken using KISS protocol and new dressing applied. Wound care consulted. PT/OT and case management consulted. PT UTD on flu & pneumonia vaccine. Denies pain. Pt was living at home alone till last admission on 04/11, then sent to [facility]. Pt oriented patient to room, use of call light, and plan of care. Received verbalization of understanding, denies questions/needs. Will monitor. Bed alarm in place.
--- NOTE | 2017-04-23 08:10 | RAD ---
Indication chest pain. Shortness of air. A single view of the chest was obtained and is compared to a two-view examination 12 days earlier. There are background changes compatible with emphysema. Heart size is slightly enlarged but unchanged. There is no congestive heart failure. There is volume loss in the left lower lobe which may reflect atelectasis or pneumonia. No pneumothorax is seen. There may be a tiny left pleural effusion. IMPRESSION: Chronic changes. Volume loss in the left lower lobe may reflect atelectasis or pneumonia. Possible tiny left pleural effusion.
[2017-04-23] MEDS ORDERED: ONDANSETRON PF 4 MG/2 ML VIAL. IV PRN (09:30)
[2017-04-23] MEDS ORDERED: MORPHINE SULFATE 4 MG/ML DISP.SYRIN. IV PRN (09:30)
[2017-04-23] MEDS ORDERED: ALBUTEROL SULFATE 8GM INHALER. INH PRN (09:30)
[2017-04-23] MEDS ORDERED: PROCHLORPERAZINE 10 MG TABLET. PO PRN (09:30)
[2017-04-23] MEDS: IPRATRPIUM/ALBUTEROL 0.5/2.5MG 3 ML NEBU. NEB SCH ×2 (10:14→21:04)
[2017-04-23] MEDS ORDERED: ALBUTEROL SULFATE 2.5 MG/3 ML NEBU. NEB PRN (10:15)
[2017-04-23 10:53] VITALS: BP 99/52
[2017-04-23] MEDS: BUMETANIDE 1 MG TABLET PO SCH (10:56)
[2017-04-23] MEDS: predniSONE 5 MG TABLET PO SCH (10:58)
[2017-04-23] MEDS: MELOXICAM 15 MG TABLET. PO SCH (10:58)
[2017-04-23] MEDS: ASPIRIN 81 MG TAB.CHEW PO SCH (10:58)
[2017-04-23] MEDS: CHOLECALCIFEROL (VITAMIN D3) 1,000 UNIT TABLET PO SCH (10:58)
--- NOTE | 2017-04-23 11:37 | NUR ---
Pharmacy Vancomycin Dosing Note S:Consulted to monitor and dose vancomycin started 04/23/17. O:IGNACIO ELIZONDO is a 81 year old M with HCAP . Height: 6 feet, 4 inches Weight: 77.291727 kg [place] Body Weight: Adjusted Body Weight: Dosing Weight: Actual Other Antibiotics: CEFEPIME 1GRAM BID66 LABS: Last BUN: 26 Last Creatinine: 1.2 Creatinine Clearance: Last WBC: 9.6 Last Platelets: 129 Tmax (past 24 hours): Microbiology: I/O: Drug Levels: Last level: on at Last dose given 04/23/17 at 1029 Vancomycin Dosing: Loading Dose: 2000 mg x1 Dosing Weight: Actual Target Trough: 15-20 A: Based on: P: 1. Begin Vancomycin 1250 mg IV q24h 2. Follow up Trough level on 04/25/17 at 1000 3. Pharmacy will continue to monitor, follow and adjust therapy as needed. PINEDA GILBERT RPH, 04/23/17 [id number]
[2017-04-23 14:58] VITALS: BP 96/59
--- NOTE | 2017-04-23 16:41 | RAD ---
Left tibia and fibula, 2 views, 04/23/2017: History: Ankle pain The bony structures are demineralized. There is a slightly comminuted fracture of the distal fibula with mild lateral displacement of the major distal fracture fragment. Alignment is unchanged since 04/11/2017. No additional fracture or dislocation is identified. There is moderate degenerative change at the left knee. There is extensive subcutaneous edema about the lower leg. IMPRESSION: Unchanged distal fibular fracture.
--- NOTE | 2017-04-23 20:06 | HP ---
ADMIT DATE: 04/23/2017 DATE OF ADMISSION: 04/23/2017 HISTORY OF PRESENT ILLNESS: The patient is an 81-year-old gentleman at intermediate home, came in with increased shortness of breath and hypoxia in the mid upper 80s with 2-3 liters of oxygen. The patient came in with acute exacerbation of COPD. He resides at a nursing facility and continues to have problems there with breathing and he was brought in as noted with the EMS. PAST MEDICAL HISTORY: The patient has had a history of tonsillitis, tonsillectomy, adenoidectomy, , COPD. He has had pneumonia in the past, COPD, diverticulitis, hiatal hernia, GERD, inguinal hernia, several surgical repairs, arthritis, left distal fibular fracture. SOCIAL HISTORY: Quit smoking in 1986. Denies alcohol or drug use. He has also had a history of lymphoma in the past and he has had chronic mantle cell lymphoma followed by for this. The patient denies alcohol or drug use. FAMILY HISTORY: Father of some form of cancer. ALLERGIES: THE PATIENT HAS ALLERGIES TO PROCAINE, PSEUDOEPHEDRINE, AND AMBIEN. REVIEW OF SYSTEMS: Positive for weight loss, difficulty swallowing foods as well as shortness of breath. Presently denies abdominal pain, chest pain. Denies any melena, hematochezia, hematemesis. Denies fever or chills. PHYSICAL EXAMINATION: GENERAL: This is a pleasant white male, looking frail, elderly, stated age. VITAL SIGNS: Blood pressure 106/46, respiratory rate 22, pulse 80, temperature 97.5. He is on 3 liters of O2. HEENT: The patient's head was atraumatic, normocephalic. Eyes: PERRLA without jaundice. The mouth and throat were normal. NECK: Supple without JVD, carotid bruits. No thyromegaly. LUNGS: Diminished, poor movement of air. Rhonchi noted throughout. CARDIOVASCULAR: Regular sinus rhythm, S1, S2, without murmur, rub, thrill, or extra heart sounds. ABDOMEN: Soft, nontender. No rebound or guarding. Positive bowel sounds. No hepatosplenomegaly noted. EXTREMITIES: No clubbing, cyanosis, edema to the left lower leg where he had his previous fracture. Pulse is noted distally. NEUROLOGIC: Alert and oriented x 3. LABORATORY DATA: White count 9.6, hemoglobin 9.3, platelets low at 129. Chemistries are basically normal except for low albumin. BUN and creatinine stable. Lactic acid is normal. 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 In any case, the patient is resting comfortably and we will put him on aggressive pulmonary toilet and cover him with other medications for previous history of recently he has been treated as an outpatient for pneumonia. He will continue those although presently he has got exacerbation of chronic obstructive pulmonary disease. STANISLAV HATCH MD DR: LUDY/ciro JOB#: [id number] / [id number]
[2017-04-23 20:48] VITALS: BP 127/72
[2017-04-23] MEDS ORDERED: IV NORMAL SALINE 1,000ML 1,000 ML IV SCH (22:30)
[2017-04-23 23:00] VITALS: BP 113/72
[2017-04-24 01:15] VITALS: BP 131/70
--- NOTE | 2017-04-24 01:30 | NUR ---
Crash heard form nurses station in room 124, staff immediately entered room and found pt on the floor facing towards the bathroom. Pt was wrapped around walker. Pt A&Ox3 and talking appropriately with staff. Pt stated that he "must have rolled out of bed". Pt also stated that he wasn't up walking, cause "I am not supposed to do that according to you." VSS. Pt hit head and has a hematoma present over right forehead. Pt also c/o hip pain, but was able to stand and take a few steps. Pt assisted back into bed x4 assist. Dr Sexton called and notified. Pt taken to Radiology in wheelchair for CT Head & XRays. When pt back from Radiology assisted into bed x2 assist. Ice pack applied to diane. Bed alarm placed on pt. Pt re-educated on need to call for help and call light use. Pt said that he is "a grown man and does not need help."
--- NOTE | 2017-04-24 03:04 | RAD ---
EXAM: CT head without contrast HISTORY: Fall, hit head, bump on forehead COMPARISON: None. TECHNIQUE: Computed tomographic images of the head were obtained without contrast. RS compliance statement: One or more of the following individualized dose reduction techniques were utilized for this examination: 1. Automated exposure control 2. Adjustment of the mA and/or kV according to patient size 3. Use of iterative reconstruction technique FINDINGS: There is no acute intracranial process identified. Specifically, there are no intracranial blood products, extra-axial fluid collections, mass effect or midline shift. Ventricles and sulci appear age-appropriate The visualized portions of the orbits and mastoid air cells are unremarkable. There is minimal mucosal thickening within the visualized paranasal sinuses. No calvarial fracture is seen. A small amount of soft tissue swelling is present within the inferior right frontal scalp. IMPRESSION: No acute intracranial findings. Electronically signed by: Fatmata Otero MD (04/24/2017 3:02 AM) [facility]
[2017-04-24] MEDS: IPRATRPIUM/ALBUTEROL 0.5/2.5MG 3 ML NEBU. NEB SCH (04:49)
[2017-04-24] MEDS: CEFEPIME HCL 1 GM in IV NORMAL SALINE 50ML 50 ML IV SCH (05:52)
[2017-04-24 06:08] VITALS: BP 121/79
--- NOTE | 2017-04-24 08:15 | NUR ---
wound care patient seen per wound care consult. see wound assessment. patient familiar to the wound care team as patient has been seen in the wound clinic. patients wounds are healing, legs are edematous, wound cleaned and redressed at this time with the recommendations that patient was given from his visit in the wound care center, redressed at this time with a contact layer and foam, change 2x/week. patient refused to place the Medigrips on at this time. notified MELVIN Tolbret about the POC and wound care will continue to f/u for possible changes.
[2017-04-24] MEDS: predniSONE 5 MG TABLET PO SCH (08:30)
[2017-04-24] MEDS: MELOXICAM 15 MG TABLET. PO SCH (08:30)
[2017-04-24] MEDS: CHOLECALCIFEROL (VITAMIN D3) 1,000 UNIT TABLET PO SCH (08:30)
[2017-04-24] MEDS: BUMETANIDE 1 MG TABLET PO SCH (08:30)
--- NOTE | 2017-04-24 08:45 | RAD ---
Pelvis with both hips, 04/24/2017: History: Fall, hip pain The bony structures are demineralized. No acute fracture or dislocation is identified. The hip joint spaces are minimally narrowed with mild marginal spurring. IMPRESSION: No acute bony abnormality is detected.
[2017-04-24] MEDS: ASPIRIN 81 MG TAB.CHEW PO SCH (08:49)
--- NOTE | 2017-04-24 08:58 | RAD ---
Left RIBS with chest, 04/24/2017: History: Fall, rib pain The bony structures are demineralized. No rib fractures identified. There is a mild thoracolumbar scoliosis with multilevel degenerative change. There is no evidence of underlying pneumothorax or pneumothorax. There are mild streaky left basilar opacity similar to those seen on yesterday's study. Blunting of the left lateral costophrenic angle is compatible with a small amount of persistent pleural fluid, as noted on the CT study of 04/10/2017. IMPRESSION: 1. Demineralization. 2. No acute left rib abnormality is detected. 3. Unchanged mild left basilar pleural-based parenchymal opacities.
[2017-04-24] MEDS ORDERED: IBRUTINIB 140 MG PO SCH (10:00)
[2017-04-24] MEDS ORDERED: VANCOMYCIN 1.25 GM in IV NORMAL SALINE 250ML 250 ML IV SCH (10:30)
[2017-04-24 11:04] VITALS: BP 104/67
[2017-04-24] MEDS ORDERED: MORPHINE SULFATE 2 MG/ML DISP.SYRIN. IV PRN (11:30)
--- NOTE | 2017-04-24 12:19 | NUR ---
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
--- NOTE | 2017-04-24 12:21 | NUR ---
Procedure: Following complete explanation of the PICC procedure including the indications, risks, and potential complications, informed consent was obtained. The possibility for infection was discussed along with signs, symptoms, and prevention. All the patient's questions were answered. IV Device Protocol was used. Written and verbal patient education was provided. Hand hygiene performed. Standardized central line checklist was utilized. The patient was placed in the supine position, the arm was prepped with chlorhexidine and patient draped with maximum sterile barrier. .5 mL 1% lidocaine was infiltrated into the skin to provide local anesthesia. A thorough assessment of right upper extremity completed. Using real-time ultrasound guidance and standardized micro puncture set, the basilic vein was punctured and a peel away sheath was placed using the modified Seldinger technique. A tip location device was used to ensure adequate catheter placement. The catheter was secured using a securement device and an antimicrobial patch was applied directly on the insertion site followed by a transparent dressing. The purple port withdrew blood and flush without resistance. Patient tolerated the procedure without apparent complication. A single Lumen Power PICC placement successful and uncomplicated. Placement verified by EKG tip confirmation system. Tip located in the low SVC per 3CG. Complications: None
--- NOTE | 2017-04-24 12:33 | DS ---
DATE OF DISCHARGE: 04/24/2017 HOSPITAL COURSE: The patient was admitted with increased acute respiratory failure from exacerbation of chronic obstructive pulmonary disease and has been doing relatively well on his IV antibiotics. We are going to put a PICC line on him and then he will be probably discharged back to the snf today. The patient was down to 87% on his oxygen saturation, ran low grade temperature. Technically, the patient had exacerbation of COPD, acute respiratory failure. The patient with IV vancomycin and cefepime that seems to have helped him. Otherwise, the patient made good progress. See MRAD. Decreased activity. He wants to go back and demands to be discharged back to [facility] and he will be sent there for further evaluation and treatment. He did fall during the night. He said he got confused, went over the rails even though he was on fall precautions, and was told to call nurses when he tries to get up. His head and hip, either which showed any pathology there. In any case, the patient will be monitored and receive physical and occupational therapy, and strength training at the facility. The patient is a DNR. See MRAD. Decreased activity and activity as tolerated by PT, OT. IMPRESSION: Acute respiratory failure, exacerbation of chronic obstructive pulmonary disease, [id number] protein malnutrition. PLAN: As above. STANISLAV HATCH MD DR: LUDY/ciro JOB#: [id number] / [id number]
--- NOTE | 2017-04-24 15:41 | NUR ---
NSG NOTE; DISCHARGE VERBAL AND WRITTEN TRANSFER INFORMATION GIVEN TO CRISTOPHER BARNETT AT 1300 WITH VERBAL UNDERSTANDING. ALL PT'S PERSONAL ITEMS RETURNED TO HIM. DISCHARGE AT 1400 TO [facility] VIA W/C ACCOMP BY TRANSPORT PERSONNEL
== END 2017-04-24 14:15 | disposition home or self-care (01) | DRG 189 ==
LOC: ER 03:38 → 1 SOUTH 05:17
PROVIDERS: ADMIT Family Medicine; ATTEND Family Medicine
DX: J96.01 Acute respiratory failure with hypoxia (principal); E43 Unspecified severe protein-calorie malnutrition; D63.8 Anemia in other chronic diseases classified elsewhere; D69.59 Other secondary thrombocytopenia; J44.1 Chronic obstructive pulmonary disease with (acute) exacerbation; Z68.21 Body mass index [BMI] 21.0-21.9, adult; K21.9 Gastro-esophageal reflux disease without esophagitis; Z66 Do not resuscitate; M19.90 Unspecified osteoarthritis, unspecified site; Z85.72 Personal history of non-Hodgkin lymphomas; Z87.01 Personal history of pneumonia (recurrent); Z87.891 Personal history of nicotine dependence; Z87.81 Personal history of (healed) traumatic fracture; Z90.49 Acquired absence of other specified parts of digestive tract; Z88.8 Allergy status to other drugs, medicaments and biological substances
CPT/HCPCS: 36415; 70450; 71010; 71101; 73521; 73590; 80053; 83605; 84443; 84484; 85007; 85025; 87040; 87070; 87205; 87641; 93005; 94640; 94760; 96361; 96374; J0692; J2930; J3370; J7040; J7050; J7512; J7620; 99285-25; J7030

== ENCOUNTER → 2017-10-17 | Day surgery (SDC) | payer MEDICARE, BC ==
[~2017-10-17] MED LIST changes: +ALBUTEROL SULFATE 2.5 MG/3 ML NEBU. NEB PRN; +ATROPINE 0.5 MG/5 ML DISP.SYRIN. IV PRN; +IV RINGERS SOLUTION,LACTATED 1,000 ML IV SCH; +LIDOCAINE 2% PF Vial for OR 5 ML VIAL. ONE; +NALOXONE 0.4 MG/ML VIAL. IV PRN; +ONDANSETRON PF 4 MG/2 ML VIAL. IV PRN; +PROPOFOL 40 ML IV ONE; +diphenhydrAMINE 50 MG/ML VIAL IV PRN
[2017-10-17 13:32] VITALS: BP 119/47
== END | disposition home or self-care (01) ==
LOC: SURG 10:48
PROVIDERS: ATTEND Internal Medicine Gastroenterology
DX: Z12.11 Encounter for screening for malignant neoplasm of colon (principal); K57.30 Diverticulosis of large intestine without perforation or abscess without bleeding; K64.8 Other hemorrhoids; J44.9 Chronic obstructive pulmonary disease, unspecified; M19.90 Unspecified osteoarthritis, unspecified site; Z79.899 Other long term (current) drug therapy; Z79.82 Long term (current) use of aspirin; Z85.72 Personal history of non-Hodgkin lymphomas; Z98.890 Other specified postprocedural states; Z88.8 Allergy status to other drugs, medicaments and biological substances; Z87.891 Personal history of nicotine dependence
CPT/HCPCS: 45378; J2704; J7120; J2001

== ENCOUNTER 2018-01-13 11:43 | Inpatient (IN) | payer MEDICARE, BC ==
[~2018-01-13] VITALS: Ht 193 cm; Wt 71.9 kg
[~2018-01-13 11:43] MED LIST changes: -ALBUTEROL SULFATE 2.5 MG/3 ML NEBU. NEB PRN; -ATROPINE 0.5 MG/5 ML DISP.SYRIN. IV PRN; -IPRA3AMP NEB; +IPRA3AMP29 NEB; -IV RINGERS SOLUTION,LACTATED 1,000 ML IV SCH; -LIDOCAINE 2% PF Vial for OR 5 ML VIAL. ONE; -NALOXONE 0.4 MG/ML VIAL. IV PRN; -ONDANSETRON PF 4 MG/2 ML VIAL. IV PRN; -PROPOFOL 40 ML IV ONE; -diphenhydrAMINE 50 MG/ML VIAL IV PRN
[2018-01-13] MEDS ORDERED: PIP/TAZO PER PHARMACY MC PRN (13:00)
[2018-01-13] MEDS ORDERED: PIPERACILLIN/TAZOBACTAM 3.375 GM in IV NORMAL SALINE 50ML 50 ML IV ONE (14:00)
[2018-01-13 14:12] LABS: ALBUMIN 3.1 g/dL (3.4-5.0); ALBUMIN/GLOBULIN RATIO 0.9 (1.0-1.7); CALCIUM 8.6 mg/dL (8.5-10.1); CREATININE 1.4 mg/dL (0.7-1.3); GFR 48.5; POTASSIUM 4.8 mmol/L (3.5-5.1); TOTAL BILIRUBIN 0.6 mg/dL (0.2-1.0); TOTAL PROTEIN 6.7 g/dL (6.4-8.2)
[2018-01-13 14:12] LABS: BACTERIA,URINE FEW /HPF (0-FEW); BILIRUBIN,URINE NEG (NEG); CLARITY,URINE HAZY; COLOR,URINE YELLOW; GLUCOSE,URINE NEG (NEG); HYALINE CASTS, URINE FEW /HPF; NITRITE,URINE NEG (NEG); SQUAMOUS EPITHELIAL CELL,UR OCC /LPF; UROBILINOGEN,URINE 0.2 mg/dL (0.2 mg/dL)
[2018-01-13 15:07] LABS: HEMATOCRIT 35.7 % (39.0-53.0); HEMOGLOBIN 11.3 g/dL (13.0-17.5); MEAN CORPUSCULAR HEMOGLOBIN 24 pg (25-35); MEAN CORPUSCULAR HGB CONC 32 g/dL (31-37); MEAN CORPUSCULAR VOLUME 77 fL (79-100); PLATELET COUNT 66 x10^3/uL (140-400); RED BLOOD COUNT 4.64 x10^6/uL (4.30-5.70); RED CELL DISTRIBUTION WIDTH 17.5 % (11.5-14.5); WHITE BLOOD COUNT 10.8 x10^3/uL (4.0-11.0)
[2018-01-13 15:09] VITALS: BP 118/71
[2018-01-13] MEDS ORDERED: FURO-69 PO (15:35)
[2018-01-13] MEDS: IPRATRPIUM/ALBUTEROL 0.5/2.5MG 3 ML NEBU. NEB SCH ×2 (15:58→20:26)
[2018-01-13] MEDS ORDERED: FERR325T14 PO (16:06)
[2018-01-13] MEDS: MELOXICAM 15 MG TABLET. PO SCH (16:27)
[2018-01-13] MEDS: IMBRUVICA 140 MG PO SCH (16:27)
[2018-01-13] MEDS: predniSONE 5 MG TABLET PO SCH (16:34)
--- NOTE | 2018-01-13 19:05 | NUR ---
The patient, IGNACIO ELIZONDO, 82 y/o, M admitted by STANISLAV HATCH MD, was given written information regarding hospital policies, unit procedures and contact persons. Patient admitted to room [address] Hatch's office. Arrived at approximately 1155. Patient ambulated to the unit accompanied by his son. Valuables were checked and left in room with patient. Vital signs assessed. Peripheral IV placed to Right forearm.
[2018-01-13 19:29] VITALS: BP 95/61
[2018-01-13] MEDS: PIPERACILLIN/TAZOBACTAM 4.5 GM in IV NORMAL SALINE 50ML 50 ML IV SCH ×2 (20:42→23:52)
[2018-01-13] MEDS: APIXABAN 2.5 MG TABLET PO SCH (21:44)
[2018-01-13 22:23] VITALS: BP 97/58
[2018-01-14] MEDS: IPRATRPIUM/ALBUTEROL 0.5/2.5MG 3 ML NEBU. NEB SCH ×4 (04:20→21:07)
[2018-01-14 05:24] VITALS: BP 101/63
[2018-01-14] MEDS: PIPERACILLIN/TAZOBACTAM 4.5 GM in IV NORMAL SALINE 50ML 50 ML IV SCH ×3 (05:45→17:36)
[2018-01-14 07:38] LABS: HEMOGLOBIN 9.9 g/dL (13.0-17.5); MEAN CORPUSCULAR HEMOGLOBIN 25 pg (25-35); MEAN CORPUSCULAR HGB CONC 32 g/dL (31-37); MEAN CORPUSCULAR VOLUME 77 fL (79-100); PLATELET COUNT 58 x10^3/uL (140-400); RED BLOOD COUNT 4.04 x10^6/uL (4.30-5.70); RED CELL DISTRIBUTION WIDTH 17.4 % (11.5-14.5); WHITE BLOOD COUNT 10.8 x10^3/uL (4.0-11.0)
[2018-01-14 07:40] LABS: CALCIUM 8.3 mg/dL (8.5-10.1); CREATININE 1.5 mg/dL (0.7-1.3); GFR 44.8; POTASSIUM 4.2 mmol/L (3.5-5.1)
[2018-01-14] MEDS ORDERED: ASPIRIN 81 MG TAB.CHEW PO SCH (08:00)
[2018-01-14] MEDS: MELOXICAM 15 MG TABLET. PO SCH (08:14)
[2018-01-14] MEDS: FERROUS SULFATE 325 MG TABLET. PO SCH (08:14)
[2018-01-14] MEDS: FUROSEMIDE 20 MG TABLET PO SCH (08:15)
[2018-01-14] MEDS: predniSONE 5 MG TABLET PO SCH (08:15)
[2018-01-14] MEDS: IMBRUVICA 140 MG PO SCH (08:15)
[2018-01-14] MEDS: APIXABAN 2.5 MG TABLET PO SCH ×2 (08:16→21:00)
--- NOTE | 2018-01-14 08:24 | NUR ---
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 JD MATTHEWS
[2018-01-14] MEDS ORDERED: OMEGA-3 FATTY ACIDS/FISH OIL 1,000 MG CAPSULE. PO SCH (09:00)
[2018-01-14] MEDS ORDERED: BUMETANIDE 1 MG TABLET PO SCH (09:00)
[2018-01-14] MEDS ORDERED: CETIRIZINE HCL 10 MG TABLET PO SCH (09:00)
[2018-01-14] MEDS ORDERED: MULTIVITAMIN with MINERAL TABLET. PO SCH (09:00)
[2018-01-14 10:46] VITALS: BP 73/50
[2018-01-14 10:48] VITALS: BP 81/52
[2018-01-14 13:00] VITALS: BP 101/62
--- NOTE | 2018-01-14 13:48 | NUR ---
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
--- NOTE | 2018-01-14 14:06 | RAD ---
CT of the chest without contrast, 01/14/2018: HISTORY: Dyspnea, elevated d-dimer Noncontrast scans were obtained as requested and compared to a study from 04/10/2017. There are bullous emphysematous changes in both lungs, most severe in the right upper lobe. There are scattered linear parenchymal opacities in both lungs much of which was present on the previous study and is compatible with scarring. Several calcified granulomas are present. Mild bronchiectasis is present in the lower lobes. There is new mild left lower lobe infiltrate with air bronchograms. Previously seen left-sided pleural fluid has largely resolved with mild residual posterior lateral pleural thickening in the left lower chest. There is moderate calcific plaquing of the thoracic aorta without evidence of aneurysm. There are calcified mediastinal and left hilar lymph nodes due to old granulomatous disease. The spleen is moderately enlarged, although incompletely delineated on these scans. This is a new finding compared to the 04/10/2017 study. A small right intrarenal calculus is noted. Moderate multilevel degenerative changes are present in the spine. IMPRESSION: 1. Moderate pulmonary emphysema with bilateral pleural-parenchymal scarring. 2. Mild bibasilar bronchiectasis. 3. Streaky left lower lobe opacities have worsened slightly suggesting worsening atelectasis and/or pneumonitis. 4. Nearly complete resolution of the previously noted small left pleural effusion. 5. Moderate splenomegaly has developed. Electronically signed by: Herbert Rankin MD (01/14/2018 2:03 PM) [facility]
[2018-01-14 14:33] LABS: % BANDS 14 % (0-9); % EOS 3 % (0-5); % MONOS 11 % (0-10); % SEGS 42 % (35-66)
[2018-01-14 14:34] LABS: ANISOCYTOSIS SLIGHT; OVALOCYTES FEW; PLT ESTIMATE DECREASED (ADEQUATE); POLYCHROMASIA SLIGHT; TEAR DROP CELLS OCC
--- NOTE | 2018-01-14 14:36 | RAD ---
Chest, 2 views, 01/14/2018: HISTORY: Dyspnea, COPD Comparison is made to a study from 04/24/2017. The heart size is within normal limits. There is calcific plaquing of the thoracic aorta. Emphysematous changes are present with attenuation of the upper lobe pulmonary vessels. There are scattered linear parenchymal opacities compatible with scars. Streaky left basilar opacities have worsened. There is persistent blunting of the left lateral costophrenic angle compatible with scarring. No right-sided pleural fluid or consolidation is seen. Moderate scattered degenerative changes are evident in the spine. IMPRESSION: 1. Emphysema with parenchymal scarring. 2. Worsening streaky left basilar parenchymal and pleural opacities suggesting mild atelectasis/infiltrate superimposed upon scarring. Electronically signed by: Herbert Rankin MD (01/14/2018 2:32 PM) [facility]
[2018-01-14 14:37] LABS: MICROCYTOSIS SLIGHT
--- NOTE | 2018-01-14 14:39 | RAD ---
Ventilation/perfusion lung scan, 01/14/2018: HISTORY: Dyspnea The ventilation study was performed utilizing 24.7 mCi of xenon-133. There is heterogeneous activity in the lungs. There is moderate patchy retention of activity in both lungs on the washout phase compatible with emphysema. Perfusion imaging was performed utilizing 5.5 mCi of technetium 99m MAA. A similar pattern of activity is present in both lungs. No definite unmatched perfusion defects are seen. IMPRESSION: 1. Moderate matched ventilation and perfusion abnormalities compatible with COPD. 2. No definite evidence of pulmonary emboli, although small emboli cannot be excluded in the presence of these ventilation and perfusion abnormalities. Electronically signed by: Herbert Rankin MD (01/14/2018 2:36 PM) [facility]
[2018-01-14 14:42] LABS: % LYMPHS 30 % (24-48)
[2018-01-14 20:05] VITALS: BP 88/49
[2018-01-14 22:41] VITALS: BP 92/59
[2018-01-15] MEDS: PIPERACILLIN/TAZOBACTAM 4.5 GM in IV NORMAL SALINE 50ML 50 ML IV SCH ×4 (00:06→18:13)
--- NOTE | 2018-01-15 00:36 | PN ---
DATE: SUBJECTIVE: An 82-year-old male admitted yesterday for acute exacerbation of chronic obstructive pulmonary disease. The patient has been unresponsive to oral antibiotics as an outpatient. Preliminary reports show that he did have 14 bands in his workup. It was also noted he might have pseudomonas as well. The patient also had elevated D-dimer. A pulmonary perfusion test was basically unremarkable except showing significant COPD. PHYSICAL EXAMINATION: VITAL SIGNS: Blood pressure did drop to 88/49 (NC), respiratory rate 22, pulse 53, afebrile. GENERAL: The patient has better oxygen saturation now. He says he is feeling a little better. LUNGS: Diminished throughout, but clear than they have been, but he has extreme COPD, continuous O2. CARDIOVASCULAR: Regular sinus rhythm. ABDOMEN: Soft, nontender. NEUROLOGICAL: Stable. IMPRESSION: Acute exacerbation of chronic obstructive pulmonary disease, hypotension, sepsis, pseudomonas infection of the lungs. PLAN: Continue with IV antibiotics and make further evaluation on him as indicated. STANISLAV HATCH MD DR: LUDY/ciro JOB#: [id number] / [id number]
[2018-01-15] MEDS: IPRATRPIUM/ALBUTEROL 0.5/2.5MG 3 ML NEBU. NEB SCH ×3 (05:33→20:32)
[2018-01-15 05:37] VITALS: BP 91/59
[2018-01-15 08:17] VITALS: BP 99/56
[2018-01-15] MEDS: predniSONE 5 MG TABLET PO SCH (08:45)
[2018-01-15] MEDS: FERROUS SULFATE 325 MG TABLET. PO SCH (08:45)
[2018-01-15] MEDS: MELOXICAM 15 MG TABLET. PO SCH (08:45)
[2018-01-15] MEDS: IMBRUVICA 140 MG PO SCH (08:48)
[2018-01-15] MEDS: FUROSEMIDE 20 MG TABLET PO SCH (08:49)
[2018-01-15] MEDS: APIXABAN 2.5 MG TABLET PO SCH ×2 (08:49→21:00)
--- NOTE | 2018-01-15 08:57 | NUR ---
Pt is alert and oriented x4. BP 90's/60's. RN called Dr Sexton, notified him of patients BP and scheduled diltiazem and furosemide. Informed Dr Sexton that patient will not take his chemo drug without the cardizem, per patient the cardizem must be taken with the chemo drug. Pts BP yesterday 100's systolic, dropped to 70's after medications given. Order from Dr Sexton to hold cardizem and lasix this morning. RN informed patient that cardizem and lasix would be held this morning for BP being too low, explained that yesterday his BP got to 70's systolic, explained that 70's is too low and how that effects perfusion. Pt was upset by this, states he will not take his cancer drug, saad RN for this. RN states that it is his decision to refuse the medication but I cannot safely administer the cardizem. RN informed him that if later in the day his BP rises to a safe enough level, at least 110's systolic then we can administer the cardizem and lasix. Will continue to monitor.
[2018-01-15 09:39] VITALS: BP 99/56
[2018-01-15 15:08] VITALS: BP 96/62
[2018-01-15 19:30] VITALS: BP 94/56
[2018-01-15 23:42] VITALS: BP 108/69
[2018-01-16] MEDS: PIPERACILLIN/TAZOBACTAM 4.5 GM in IV NORMAL SALINE 50ML 50 ML IV SCH ×5 (00:27→23:54)
[2018-01-16] MEDS: IPRATRPIUM/ALBUTEROL 0.5/2.5MG 3 ML NEBU. NEB SCH ×3 (05:44→20:46)
[2018-01-16 07:49] VITALS: BP 119/68
[2018-01-16] MEDS: predniSONE 5 MG TABLET PO SCH (08:22)
[2018-01-16] MEDS: IMBRUVICA 140 MG PO SCH (08:23)
[2018-01-16] MEDS: MELOXICAM 15 MG TABLET. PO SCH (08:23)
[2018-01-16] MEDS: FERROUS SULFATE 325 MG TABLET. PO SCH (08:23)
[2018-01-16] MEDS: APIXABAN 2.5 MG TABLET PO SCH ×2 (08:23→21:00)
[2018-01-16 08:35] LABS: CALCIUM 8.3 mg/dL (8.5-10.1); CREATININE 1.5 mg/dL (0.7-1.3); GFR 44.8; HEMATOCRIT 32.9 % (39.0-53.0); HEMOGLOBIN 10.3 g/dL (13.0-17.5); MEAN CORPUSCULAR HEMOGLOBIN 24 pg (25-35); MEAN CORPUSCULAR HGB CONC 31 g/dL (31-37); MEAN CORPUSCULAR VOLUME 77 fL (79-100); PLATELET COUNT 59 x10^3/uL (140-400); POTASSIUM 4.3 mmol/L (3.5-5.1); RED BLOOD COUNT 4.25 x10^6/uL (4.30-5.70); RED CELL DISTRIBUTION WIDTH 17.8 % (11.5-14.5); WHITE BLOOD COUNT 10.8 x10^3/uL (4.0-11.0)
[2018-01-16] MEDS: FUROSEMIDE 20 MG TABLET PO SCH (08:36)
[2018-01-16 09:06] LABS: % BANDS 1 % (0-9); % BASOS 1 % (0-3); % EOS 2 % (0-5); % LYMPHS 45 % (24-48); % MONOS 6 % (0-10); % SEGS 45 % (35-66); ANISOCYTOSIS PRESENT; HYPOCHROMIA PRESENT; OVALOCYTES OCC; PLT ESTIMATE DECREASED (ADEQUATE)
[2018-01-16 09:07] LABS: TOXIC VACUOLATION SLIGHT
--- NOTE | 2018-01-16 09:27 | NUR ---
Pt is alert and oriented x4. BP up today, was able to give cardizem so patient also took his chemo drug. RN spoke with Dr Smith nurse, they did not start the patient on cardizem and the cardizem does not help the chemo drug work. Dr Morin office started the cardizem. RN called Dr Morin office and LM to return phone call about why patient was started on cardizem as patient does not report cardiac history. Pt insistent that he wants to go to [facility]. Pt has been up walking with walker in hallway. PT reported that patient had mentioned that he wanted to skill for social interaction. RN let patient know that only one patient was over there and is confused so there would not be a lot of socialization. Pt reports he is also very confused as he is not able to balance his check book anymore or take care of his own bills. RN explained that we do not swing patients because they cannot balance their check books. Pt states he is concerned about being completely healthy and wants to continue IV antibiotics over in SNU and does not want to do home health because of their "stupid rules". Unsure if Dr Sexton plans to do this, will discuss. Will continue to monitor.
--- NOTE | 2018-01-16 09:44 | PN ---
DATE: 01/15/2018 SUBJECTIVE: An 82-year-old gentleman in with acute exacerbation of COPD and previous pseudomonal infection of his sputum, although his most recent sputum growth has been negative so far here, outpatient did show pseudomonas. He is breathing a little bit easier. However, the patient did have some problems with the lower blood pressure dropping down into the low 70s. The patient, however, has been very reluctant and very adamant about still taking his blood pressure medications even though the nursing staff and the physician spent approximately one hour describing the problems of a low blood pressure ____ use the Cardizem is part of his chemotherapy and he understands the problems understanding this situation there ____. He will undergo a stress test with Dr. Call, his noted ____ for further evaluation on that. The patient in turn presently is 94/56, respiratory rate 24, pulse 70, afebrile. The patient's lungs were diminished, but clear than they have been. He is moving air a little bit better, although he never moves his air very well. His blood count from today still shows white count of 10,000, yesterday it did show 14 bands consistent probably with a septic system of pseudomonas along with the low blood pressure, although again that has been complicated by the patient's refusal, stopped taking his diltiazem 180 mg as well as his furosemide. In any case, after lengthy discussion, we will try to get hold of Dr. Call to reassure the patient. He is not going to have a relapse from stopping and taking his diltiazem and that he presents more of a problem with low blood pressure than he does with cancer, which has been in remission for several years. In any case, the patient is resting comfortably. The patent does have exacerbation of COPD, chronic bronchitis with pseudomonas, hypotension secondary to medication. STANISLAV HATCH MD DR: LUDY/ciro JOB#: [id number] / [id number]
[2018-01-16 11:02] VITALS: BP 93/60
[2018-01-16 14:59] VITALS: BP 103/59
[2018-01-16 20:23] VITALS: BP 108/58
[2018-01-16 22:55] VITALS: BP 101/63
[2018-01-17] MEDS: PIPERACILLIN/TAZOBACTAM 4.5 GM in IV NORMAL SALINE 50ML 50 ML IV SCH ×2 (05:36→15:31)
[2018-01-17 05:43] VITALS: BP 125/78
[2018-01-17] MEDS: IPRATRPIUM/ALBUTEROL 0.5/2.5MG 3 ML NEBU. NEB SCH ×2 (05:43→10:47)
--- NOTE | 2018-01-17 08:37 | NUR ---
IP: patient tests + for MRSA screen, requires contact precautions until 2 negative results 7 days apart.
[2018-01-17] MEDS: APIXABAN 2.5 MG TABLET PO SCH (09:00)
[2018-01-17] MEDS: MELOXICAM 15 MG TABLET. PO SCH (09:24)
[2018-01-17] MEDS: FERROUS SULFATE 325 MG TABLET. PO SCH (09:24)
[2018-01-17] MEDS: FUROSEMIDE 20 MG TABLET PO SCH (09:24)
[2018-01-17] MEDS: predniSONE 5 MG TABLET PO SCH (09:25)
[2018-01-17] MEDS: IMBRUVICA 140 MG PO SCH (09:25)
[2018-01-17] MEDS ORDERED: PIPE2.255 MC (10:03)
[2018-01-17 10:54] VITALS: BP 97/67
--- NOTE | 2018-01-17 12:30 | NUR ---
Allergies and reactions y INR BUN Cr Platelets y Blood culture done blood culture results y Order Verified y Consent signed y Previous PICC placement y Past Medical/Surgical history and current diagnosis reviewed Patient Medical /Surgical History Related to PICC line placement None Arrhythmias- RESOLVED History of bleeding, bruising, clotting disorder Infectious Disease consult Past central line or venous access device placement Special considerations for PICC line placement None Infections PICC placement indication Caustic medication class drug usage, halfway antibiotic usage, Multiple/ Frequent blood draws Name of PICC Nurse Caitlin Escudero RN
--- NOTE | 2018-01-17 14:03 | NUR ---
Procedure: Following complete explanation of the PICC procedure including the indications, risks, and potential complications, informed consent was obtained. The possibility for infection was discussed along with signs, symptoms, and prevention. All the questions were answered. IV Device Protocol was used. Written and verbal patient education was provided. Hand hygiene performed. Standardized central line checklist was utilized. The patient was placed in the supine position, the arm was prepped with chlorhexidine and patient draped with maximum sterile barrier. 3 mL 1% lidocaine was infiltrated into the skin to provide local anesthesia. A thorough assessment of right upper extremity completed. Using real-time ultrasound guidance and standardized micro puncture set, the vein was punctured and a peel away sheath was placed using the modified Seldinger technique. A tip location device was used to ensure adequate catheter placement. The catheter was secured using a securement device and an antimicrobial patch was applied directly on the insertion site followed by a transparent dressing. All ports withdraw blood and flush without resistance. Patient tolerated the procedure without apparent complication(s). Single Lumen Power PICC placement successful and uncomplicated. Placement verified by EKG tip confirmation system. Complications: Had trouble accessing bacilic vessel due to superficial. Had to access cephalic Cailtin Trammell SENIOR WRITER CMSRN [facility] 50cm inside 0 out
[2018-01-17 15:21] VITALS: BP 105/68
--- NOTE | 2018-01-17 18:04 | NUR ---
NSG NOTE; DISCHARGE VERBAL AND WRITTEN DISCHARGE INSTRUCTIONS GIVEN TO PT AND SON WITH VERBAL UNDERSTANDING [facility] ARRANGED BY ORAL CHARLES CM TO BE AT PT'S HOME IN THE AM DISCHARGE TO HOME VIA AMB WITH WALKER AT 1735 ACCOMP BY SON
--- NOTE | 2018-01-18 11:27 | PN ---
DATE: 01/16/2018 The patient with acute exacerbation of COPD, Pseudomonas bronchitis. The patient is resting fairly comfortably, making fairly good progress overall. He is breathing somewhat better. His blood pressure has come up to 110/60, respiratory rate 20, pulse 63, afebrile. The patient's lungs are diminished, but clear than they have been. He is markedly improved. The patient otherwise will continue to be monitored carefully and the patient , otherwise his urine culture did show E. coli as well. Sputum did show Pseudomonas. STANISLAV HATCH MD DR: LUDY/ciro JOB#: [id number] / [id number]
--- NOTE | 2018-01-18 11:37 | DS ---
DATE OF DISCHARGE: 01/17/2018 HOSPITAL COURSE: The patient is an 82-year-old male who is in with acute exacerbation of chronic obstructive pulmonary disease. Outpatient sputums from a few days prior demonstrated pseudomonas. The patient was unable to give a good sputum specimen. He does have some yeast in it, but with IV Zosyn, which knocked down the pseudomonal infection, the patient made good progress during the rest of his hospitalization. CTA demonstrated pulmonary emphysema, bibasilar bronchiectasis and opacity suggesting worse atelectasis or pneumonitis, probably related to the pseudomonas. The patient made excellent progress during the rest of his hospitalization and was discharged home for followup. He will continue on oral antibiotics that are sensitive to the pseudomonas. The patient's V/Q scan demonstrated no PE, however, moderate amount obviously with his longstanding COPD as he is on chronic oxygen. In any case, the patient made good progress during the rest of his hospitalization. He was discharged home for followup and make further evaluation on him as indicated per those results. IMPRESSION: Pneumonitis, probable pseudomonas, acute exacerbation of chronic obstructive pulmonary disease, moderate protein malnutrition, leukorrhea, emaciation. DISCHARGE INSTRUCTIONS: The patient will be discharged home. Follow up as an outpatient and continue home therapy is indicated. STANISLAV HATCH MD DR: LUDY/ciro JOB#: [id number] / [id number]
== END 2018-01-17 17:35 | disposition home health service (06) | DRG 871 ==
LOC: 1 SOUTH 11:43
PROVIDERS: ADMIT Family Medicine; ATTEND Family Medicine
PROC: 05HY33Z Insertion of Infusion Device into Upper Vein, Percutaneous Approach (ICD-10-PCS; principal; 2018-01-17)
PROC: B54MZZA Ultrasonography of Right Upper Extremity Veins, Guidance (ICD-10-PCS; 2018-01-17)
DX: A41.9 Sepsis, unspecified organism (principal); E41 Nutritional marasmus; J15.1 Pneumonia due to Pseudomonas; J44.1 Chronic obstructive pulmonary disease with (acute) exacerbation; J96.10 Chronic respiratory failure, unspecified whether with hypoxia or hypercapnia; E44.0 Moderate protein-calorie malnutrition; Z68.1 Body mass index [BMI] 19.9 or less, adult; J44.0 Chronic obstructive pulmonary disease with (acute) lower respiratory infection; B96.5 Pseudomonas (aeruginosa) (mallei) (pseudomallei) as the cause of diseases classified elsewhere; I95.2 Hypotension due to drugs; T50.905A Adverse effect of unspecified drugs, medicaments and biological substances, initial encounter; Y92.89 Other specified places as the place of occurrence of the external cause; Z99.81 Dependence on supplemental oxygen; Z87.891 Personal history of nicotine dependence; Z79.899 Other long term (current) drug therapy
CPT/HCPCS: 36415; 36569; 71046; 71250; 78582; 80048; 80053; 81001; 83605; 85007; 85025; 85379; 87040; 87070; 87086; 87205; 87641; 94640; 94760; 96374; A9540; A9558; J2543; J7512; J7620; 97116; 97530

== ENCOUNTER 2018-01-20 07:20 | Inpatient (IN) | payer MEDICARE, BC ==
[~2018-01-20] VITALS: Ht 193 cm; Wt 71.8 kg
[~2018-01-20 07:20] MED LIST changes: +FERR325T14 PO; +PIPE2.255 MC
--- NOTE | 2018-01-20 07:32 | ED.ADGEN ---
Past History Past Medical History: Arthritis, Cancer, COPD, Diverticulitis, GERD, Pneumonia , Other Past Surgical History: Tonsillectomy, Other Alcohol Use: None Drug Use: None Adult General Chief Complaint Chief Complaint Shortness of breath HPI HPI The patient is an 82 year-old male with history of COPD. Patient was recently hospitalized by Dr. Snider for COPD exacerbation and was found to have Pseudomonas pneumonitis. He was discharged 2 days ago on the . Since discharge, he's had progressive shortness of breath despite home O2 and serial breathing treatments 3 times daily. Yesterday, around 2:30 PM his daughter found him at home with low oxygenation, low blood pressure (his O2 sats were in the 80s and his systolic blood pressures in the 90s). His daughter offered to take him to the hospital, but at that time he refused. This morning, he still felt ill and he called Dr. Snider who told him to come to the emergency department. Review of Systems Review of Systems Constitutional: Denies fever or chills Eyes: Denies change in visual acuity, redness, or eye pain HENT: Denies nasal congestion or sore throat Respiratory: With cough and shortness of breath Cardiovascular: with chest tightness GI: Denies abdominal pain, nausea, vomiting, bloody stools or diarrhea : Denies dysuria or hematuria Musculoskeletal: Denies back pain or joint pain Integument: Denies rash or skin lesions Neurologic: Denies headache, focal weakness or sensory changes Endocrine: Denies polyuria or polydipsia All other systems were reviewed and found to be within normal limits, except as documented in this note. Allergies Allergies Allergies Coded Allergies Type Severity Reaction Last Updated Verified procaine Allergy Intermediate 03/27/16 Yes pseudoephedrine Allergy Intermediate 03/27/16 Yes I S O L A T I O N *CONTACT* Allergy Unknown 01/14/18 Yes Physical Exam Physical Exam Constitutional: Well developed, well nourished, frail appearing, with NC O2, no acute distress, with frequent cough, non-toxic appearance. HENT: Normocephalic, atraumatic, bilateral external ears normal, oropharynx moist, no oral exudates, nose normal. Eyes: PERRLA, EOMI, conjunctiva injected bilaterally, no discharge. Neck: Normal range of motion, no tenderness, supple, no stridor. Cardiovascular:Heart rate regular rhythm, no murmur Lungs & Thorax: Bilateral breath sounds diminished bilaterally Abdomen: Bowel sounds normal, soft, no tenderness, no masses, no pulsatile masses. Skin: Warm, dry, no erythema, no rash. Back: No tenderness, no CVA tenderness. Extremities: No tenderness, no cyanosis, no clubbing, ROM intact, no edema. Neurologic: Alert and oriented X 3, normal motor function, normal sensory function, no focal deficits noted. Psychologic: Affect normal, judgement normal, mood normal. Current Patient Data Vital Signs Vital Signs Date Time Temp Pulse Resp B/P (MAP) Pulse Ox O2 Delivery O2 Flow Rate FiO2 01/20/18 07:41 98.5 100 28 92 Nasal Cannula 3.0 EKG EKG [] Radiology/Procedures Radiology/Procedures [address] [address] IMAGING REPORT Signed PATIENT: INGACIO ELIZONDO ACCOUNT: [id number] : 1935 LOCATION: ER AGE: 82 SEX: M EXAM STATUS: REG ER ORD. PHYSICIAN: ROSA ASTORGA MD REASON: SOB PROCEDURE: PORTABLE CHEST 1V Portable chest, 01/20/2018: HISTORY: Shortness of breath, recent hospitalization for pneumonia Comparison is made to a study from 01/14/2018. A right PICC is in place. Its tip is not clearly visualized, however, it appears to extend into the superior aspect of the right atrium. The heart is within normal limits in size. There is moderate pulmonary emphysema. There are persistent streaky left basilar opacities suggesting pneumonia superimposed upon scarring. Other scattered linear opacities in both lungs are unchanged and are compatible with scars. No new pulmonary abnormality is seen. No definite pleural fluid is visible on this AP view. IMPRESSION: 1. A right PICC is in satisfactory position. 2. Emphysema with parenchymal scarring 3. Unchanged streaky left basilar opacities suggesting pneumonia superimposed upon scarring. Electronically signed by: Herbert Rankin MD (01/20/2018 8:13 AM) [facility] DICTATED AND SIGNED BY: HERBERT RANKIN MD DATE: 01/20/18 0809 CC: STANISLAV HATCH MD; ROSA ASTORGA MD ~ Course & Med Decision Making Course & Med Decision Making Patient presents with progressive shortness breath with known COPD history and diagnosis of Pseudomonas pneumonitis. He is on home IV antibiotics via PICC line and on home O2 DDx-pneumonia, COPD exacerbation, respiratory failure Patient was stable in the ED on NC O2. CXR showed COPD with pneumonia unchanged from prior CXR. 07:[address] Stanislav Snider who will look into admission to [facility]. Recommends portal chest x-ray, no workup at this time. Dr. Stanislav Hatch will call me back. 08:00 Dr. Hatch cleared admission to [facility] facility. Chest x-ray shows COPD changes with pneumonia unchanged from previous chest x-ray. Patient agreed with admission. Final Impression Final Impression Clinical Impression Pneumonia Pseudomonal Infection COPD Dragon Disclaimer Dragon Disclaimer This electronic medical record was generated, in whole or in part, using a voice recognition dictation system. Departure Departure: Impression: Primary Impression: Pseudomonas infection Additional Impressions: Pneumonia Chronic bronchitis with COPD (chronic obstructive pulmonary disease) Disposition: ADMITTED INPATIENT Admitting Physician: Stanislav Hatch Diltiazem Hcl (DILTIAZEM XT) 180 Mg Capsule.er 60 MG PO DAILY for HIGH BLOOD PRESSURE for 60 Days LAST DOSE GIVEN: DATE: TODAY TIME: AM NEXT DOSE DUE: DATE: TOMORROW TIME: AM Prov: STANISLAV HATCH MD 01/20/18 ROSA ASTORGA MD Jan 20, 2018 07:31
--- NOTE | 2018-01-20 08:16 | RAD ---
Portable chest, 01/20/2018: HISTORY: Shortness of breath, recent hospitalization for pneumonia Comparison is made to a study from 01/14/2018. A right PICC is in place. Its tip is not clearly visualized, however, it appears to extend into the superior aspect of the right atrium. The heart is within normal limits in size. There is moderate pulmonary emphysema. There are persistent streaky left basilar opacities suggesting pneumonia superimposed upon scarring. Other scattered linear opacities in both lungs are unchanged and are compatible with scars. No new pulmonary abnormality is seen. No definite pleural fluid is visible on this AP view. IMPRESSION: 1. A right PICC is in satisfactory position. 2. Emphysema with parenchymal scarring 3. Unchanged streaky left basilar opacities suggesting pneumonia superimposed upon scarring. Electronically signed by: Herbert Rankin MD (01/20/2018 8:13 AM) [facility]
[2018-01-20] MEDS ORDERED: ONDANSETRON PF 4 MG/2 ML VIAL. IV PRN (10:45)
[2018-01-20 10:58] VITALS: BP 131/81
[2018-01-20] MEDS: IBRUTINIB 140 MG PO SCH (12:02)
[2018-01-20] MEDS: PIPERACILLIN/TAZOBACTAM 4.5 GM in IV NORMAL SALINE 50ML 50 ML IV SCH ×2 (12:03→17:41)
[2018-01-20] MEDS ORDERED: DILT180C4 PO (13:02)
[2018-01-20 13:43] LABS: HEMATOCRIT 32.6 % (39.0-53.0); HEMOGLOBIN 10.2 g/dL (13.0-17.5); MEAN CORPUSCULAR HEMOGLOBIN 24 pg (25-35); MEAN CORPUSCULAR HGB CONC 31 g/dL (31-37); MEAN CORPUSCULAR VOLUME 77 fL (79-100); PLATELET COUNT 71 x10^3/uL (140-400); RED BLOOD COUNT 4.22 x10^6/uL (4.30-5.70); RED CELL DISTRIBUTION WIDTH 17.2 % (11.5-14.5); WHITE BLOOD COUNT 18.4 x10^3/uL (4.0-11.0)
[2018-01-20] MEDS ORDERED: PIPERACILLIN/TAZOBACTAM 2.25 GM in IV NORMAL SALINE 50ML 50 ML IV SCH (14:00)
[2018-01-20] MEDS ORDERED: PIPERACILLIN/TAZOBACTAM 2.25 GM VIAL IV SCH (14:00)
[2018-01-20] MEDS ORDERED: IPRATRPIUM/ALBUTEROL 0.5/2.5MG 3 ML NEBU. NEB SCH (14:00)
[2018-01-20 14:22] LABS: % BANDS 1 % (0-9); % EOS 3 % (0-5); % LYMPHS 57 % (24-48); % MONOS 7 % (0-10); % SEGS 32 % (35-66); PLT ESTIMATE DECREASED (ADEQUATE)
[2018-01-20 14:23] LABS: ANISOCYTOSIS MOD; MICROCYTOSIS SLIGHT; OVALOCYTES OCC; POLYCHROMASIA SLIGHT
[2018-01-20 14:25] LABS: TEAR DROP CELLS OCC
[2018-01-20] MEDS: IPRATRPIUM/ALBUTEROL 0.5/2.5MG 3 ML NEBU. NEB SCH (20:43)
[2018-01-21] MEDS: IPRATRPIUM/ALBUTEROL 0.5/2.5MG 3 ML NEBU. NEB SCH ×4 (04:35→20:47)
[2018-01-21] MEDS: PIPERACILLIN/TAZOBACTAM 4.5 GM in IV NORMAL SALINE 50ML 50 ML IV SCH ×6 (05:35→23:43)
[2018-01-21 06:04] VITALS: BP 101/59
[2018-01-21 06:05] LABS: HEMATOCRIT 33.8 % (39.0-53.0); HEMOGLOBIN 10.6 g/dL (13.0-17.5); MEAN CORPUSCULAR HEMOGLOBIN 24 pg (25-35); MEAN CORPUSCULAR HGB CONC 31 g/dL (31-37); MEAN CORPUSCULAR VOLUME 77 fL (79-100); PLATELET COUNT 69 x10^3/uL (140-400); RED BLOOD COUNT 4.38 x10^6/uL (4.30-5.70); RED CELL DISTRIBUTION WIDTH 17.2 % (11.5-14.5); WHITE BLOOD COUNT 16.6 x10^3/uL (4.0-11.0)
[2018-01-21 06:12] LABS: CALCIUM 8.8 mg/dL (8.5-10.1); CREATININE 1.5 mg/dL (0.7-1.3); GFR 44.8; POTASSIUM 4.4 mmol/L (3.5-5.1)
[2018-01-21 06:42] LABS: % BANDS 1 % (0-9); % BASOS 1 % (0-3); % EOS 3 % (0-5); % LYMPHS 60 % (24-48); % MONOS 14 % (0-10); % SEGS 20 % (35-66); PLT ESTIMATE DECREASED (ADEQUATE); SMUDGE CELLS PRESENT
[2018-01-21 06:43] LABS: ANISOCYTOSIS MOD; MICROCYTOSIS SLIGHT; POLYCHROMASIA SLIGHT
[2018-01-21 06:45] LABS: HYPOCHROMIA SLIGHT; OVALOCYTES OCC; TOXIC VACUOLATION SLIGHT
[2018-01-21 06:47] LABS: % ATYL 1 % (0-0)
[2018-01-21] MEDS: FUROSEMIDE 20 MG TABLET PO SCH (07:02)
[2018-01-21] MEDS: predniSONE 20 MG TABLET PO SCH (07:46)
[2018-01-21] MEDS: FERROUS SULFATE 325 MG TABLET. PO SCH (07:46)
[2018-01-21] MEDS: MELOXICAM 15 MG TABLET. PO SCH (07:46)
[2018-01-21 18:32] VITALS: BP 90/51
[2018-01-21] MEDS: ACETAMINOPHEN 325 MG TABLET PO PRN (23:43)
[2018-01-22 04:55] VITALS: BP 134/78
[2018-01-22] MEDS: PIPERACILLIN/TAZOBACTAM 4.5 GM in IV NORMAL SALINE 50ML 50 ML IV SCH ×4 (05:33→23:34)
[2018-01-22] MEDS: IPRATRPIUM/ALBUTEROL 0.5/2.5MG 3 ML NEBU. NEB SCH ×4 (05:41→20:58)
[2018-01-22] MEDS: MELOXICAM 15 MG TABLET. PO SCH (09:20)
[2018-01-22] MEDS: FERROUS SULFATE 325 MG TABLET. PO SCH ×2 (09:20→23:32)
[2018-01-22] MEDS: FUROSEMIDE 20 MG TABLET PO SCH (09:20)
[2018-01-22] MEDS: predniSONE 20 MG TABLET PO SCH (09:20)
[2018-01-22] MEDS: IBRUTINIB 140 MG PO SCH (10:44)
[2018-01-22 18:43] VITALS: BP 99/55
[2018-01-22] MEDS: ACETAMINOPHEN 325 MG TABLET PO PRN (23:32)
[2018-01-23] MEDS: PIPERACILLIN/TAZOBACTAM 4.5 GM in IV NORMAL SALINE 50ML 50 ML IV SCH ×3 (05:36→18:52)
[2018-01-23] MEDS: IPRATRPIUM/ALBUTEROL 0.5/2.5MG 3 ML NEBU. NEB SCH ×4 (05:45→21:38)
[2018-01-23 06:00] VITALS: BP 129/66
[2018-01-23] MEDS: IBRUTINIB 140 MG PO SCH (08:14)
[2018-01-23] MEDS: predniSONE 20 MG TABLET PO SCH (08:15)
[2018-01-23] MEDS: MELOXICAM 15 MG TABLET. PO SCH (08:15)
[2018-01-23] MEDS: FUROSEMIDE 20 MG TABLET PO SCH (08:16)
[2018-01-23] MEDS: BISMUTH SUBSALICYLATE 262 MG/15 ML ORAL.SUSP 236ML BOTTLE. PO PRN ×5 (10:19→23:27)
[2018-01-23 18:40] VITALS: BP 111/63
[2018-01-24] MEDS: FERROUS SULFATE 325 MG TABLET. PO SCH (00:11)
[2018-01-24] MEDS: PIPERACILLIN/TAZOBACTAM 4.5 GM in IV NORMAL SALINE 50ML 50 ML IV SCH ×4 (00:11→17:59)
[2018-01-24] MEDS: ACETAMINOPHEN 325 MG TABLET PO PRN (03:28)
[2018-01-24] MEDS: IPRATRPIUM/ALBUTEROL 0.5/2.5MG 3 ML NEBU. NEB SCH ×4 (05:08→20:58)
[2018-01-24 05:40] VITALS: BP 130/82
[2018-01-24] MEDS: IBRUTINIB 140 MG PO SCH (09:00)
[2018-01-24] MEDS: predniSONE 20 MG TABLET PO SCH (09:51)
[2018-01-24] MEDS: FUROSEMIDE 20 MG TABLET PO SCH (09:51)
[2018-01-24] MEDS: MELOXICAM 15 MG TABLET. PO SCH (09:51)
[2018-01-24 18:00] VITALS: BP 99/60
[2018-01-25] MEDS: PIPERACILLIN/TAZOBACTAM 4.5 GM in IV NORMAL SALINE 50ML 50 ML IV SCH ×4 (00:30→17:45)
[2018-01-25 05:39] VITALS: BP 117/72
[2018-01-25] MEDS: IPRATRPIUM/ALBUTEROL 0.5/2.5MG 3 ML NEBU. NEB SCH ×4 (05:59→21:15)
[2018-01-25] MEDS: IBRUTINIB 140 MG PO SCH (09:34)
[2018-01-25] MEDS: MELOXICAM 15 MG TABLET. PO SCH (09:34)
[2018-01-25] MEDS: predniSONE 20 MG TABLET PO SCH (09:34)
[2018-01-25] MEDS: FUROSEMIDE 20 MG TABLET PO SCH (09:35)
[2018-01-25 19:02] VITALS: BP 108/74
[2018-01-25] MEDS: FERROUS SULFATE 325 MG TABLET. PO SCH ×2 (21:15)
[2018-01-26] MEDS: PIPERACILLIN/TAZOBACTAM 4.5 GM in IV NORMAL SALINE 50ML 50 ML IV SCH ×5 (00:01→23:40)
[2018-01-26 06:05] VITALS: BP 117/72
[2018-01-26] MEDS: IPRATRPIUM/ALBUTEROL 0.5/2.5MG 3 ML NEBU. NEB SCH ×4 (06:07→23:43)
[2018-01-26] MEDS: MELOXICAM 15 MG TABLET. PO SCH (08:29)
[2018-01-26] MEDS: predniSONE 20 MG TABLET PO SCH (08:30)
[2018-01-26] MEDS: FUROSEMIDE 20 MG TABLET PO SCH (08:30)
[2018-01-26] MEDS: IBRUTINIB 140 MG PO SCH (08:31)
[2018-01-26 18:00] VITALS: BP 91/53
[2018-01-26] MEDS: FERROUS SULFATE 325 MG TABLET. PO SCH (23:55)
[2018-01-27] MEDS: IPRATRPIUM/ALBUTEROL 0.5/2.5MG 3 ML NEBU. NEB SCH ×2 (05:56→11:16)
[2018-01-27] MEDS: PIPERACILLIN/TAZOBACTAM 4.5 GM in IV NORMAL SALINE 50ML 50 ML IV SCH (06:12)
[2018-01-27] MEDS: FUROSEMIDE 20 MG TABLET PO SCH (09:00)
[2018-01-27] MEDS: IBRUTINIB 140 MG PO SCH (09:00)
[2018-01-27 09:05] VITALS: BP 96/57
[2018-01-27] MEDS ORDERED: ACET325T9 PO (09:23)
[2018-01-27] MEDS ORDERED: PRED5TAB PO (09:23)
[2018-01-27] MEDS ORDERED: DILT60TA3 PO (09:23)
[2018-01-27] MEDS ORDERED: BISM262O17 PO (09:23)
[2018-01-27] MEDS: predniSONE 20 MG TABLET PO SCH (09:25)
[2018-01-27] MEDS: MELOXICAM 15 MG TABLET. PO SCH (09:25)
== END 2018-01-27 11:55 | disposition home or self-care (01) | DRG 193 ==
LOC: ER 07:20 → LND 08:26
PROVIDERS: ADMIT Family Medicine; ATTEND Family Medicine
DX: J18.9 Pneumonia, unspecified organism (principal); E41 Nutritional marasmus; J44.0 Chronic obstructive pulmonary disease with (acute) lower respiratory infection; J44.1 Chronic obstructive pulmonary disease with (acute) exacerbation; E44.0 Moderate protein-calorie malnutrition; Z68.1 Body mass index [BMI] 19.9 or less, adult; B96.5 Pseudomonas (aeruginosa) (mallei) (pseudomallei) as the cause of diseases classified elsewhere; K21.9 Gastro-esophageal reflux disease without esophagitis; M19.90 Unspecified osteoarthritis, unspecified site; Z90.49 Acquired absence of other specified parts of digestive tract; Z99.81 Dependence on supplemental oxygen
CPT/HCPCS: 36415; 71045; 80048; 85007; 85025; 94640; 94760; J2543; J7512; J7620; 97110; 97530; 97535; 99285-25

== ENCOUNTER 2018-06-18 03:33 | Emergency (ER) | payer MEDICARE, BC ==
[~2018-06-18] VITALS: Ht 193 cm; Wt 68.0 kg
[~2018-06-18 03:33] MED LIST changes: +ACET325T9 PO; +ALBU2.5V8 INH; -ALBU8.5H8 INH; +BISM262O17 PO; +CEFT1VIA13 IJ; -CEFT1VIA6 IJ; +DILT60TA3 PO; -ONDA4VIA4 IV; +ONDA4VIA56 IV
[2018-06-18 03:43] VITALS: BP 124/63
--- NOTE | 2018-06-18 04:23 | PHYS DOC ---
Past History Past Medical History: Arthritis, Cancer, COPD Past Surgical History: Tonsillectomy, Other Alcohol Use: None Drug Use: None Adult General Chief Complaint Chief Complaint: LACERATION/AVULSION [facility] 82-year-old male presents via EMS with left lower leg laceration. The patient lives he sleeps in his chair. The patient started to roll over in his sleep and his leg slipped off of the edge of his chair and struck side of the foot rest. The patient noticed that it tore his skin and he began bleeding. He attempted to put a large Band-Aid over it but it continued to bleed so he called EMS. When EMS arrived the bleeding was controlled, but the patient wanted to be evaluated anyway. On arrival there is a blood soaked gauze dressing over the wound, no active bleeding. Patient denies any other injuries. He has no other complaints. Review of Systems Review of Systems Constitutional: Denies fever or chills [] Eyes: Denies change in visual acuity, redness, or eye pain [] HENT: Denies nasal congestion or sore throat [] Respiratory: Denies cough or shortness of breath [] Cardiovascular: No additional information not addressed in HPI [] GI: Denies abdominal pain, nausea, vomiting, bloody stools or diarrhea [] : Denies dysuria or hematuria [] Musculoskeletal: Denies back pain or joint pain [] Integument: Laceration of the left lower leg[] Neurologic: Denies headache, focal weakness or sensory changes [] Endocrine: Denies polyuria or polydipsia [] All other systems were reviewed and found to be within normal limits, except as documented in this note. Allergies Allergies Allergies Coded Allergies Type Severity Reaction Last Updated Verified procaine Allergy Intermediate 03/27/16 Yes pseudoephedrine Allergy Intermediate 03/27/16 Yes I S O L A T I O N *CONTACT* Allergy Unknown 01/14/18 Yes Physical Exam Physical Exam Constitutional: Well developed, well nourished, no acute distress, non-toxic appearance. [] HENT: Normocephalic, atraumatic, bilateral external ears normal, oropharynx moist, no oral exudates, nose normal. [] Eyes: PERRLA, EOMI, conjunctiva normal, yellowish discharge from the right eye. [] Neck: Normal range of motion, no tenderness, supple, no stridor. [] Cardiovascular:Heart rate regular rhythm, no murmur [] Lungs & Thorax: Bilateral breath sounds clear to auscultation [] Abdomen: Bowel sounds normal, soft, no tenderness, no masses, no pulsatile masses. [] Skin: V-shaped laceration total length 5 cm on the left lower leg. Skin generally dry and thin.[] Back: No tenderness, no CVA tenderness. [] Extremities: No tenderness, no cyanosis, no clubbing, ROM intact, no edema. [] Neurologic: Alert and oriented X 3, normal motor function, normal sensory function, no focal deficits noted. [] Psychologic: Affect normal, judgement normal, mood normal. [] Current Patient Data Vital Signs Vital Signs Date Time Temp Pulse Resp B/P (MAP) Pulse Ox O2 Delivery O2 Flow Rate FiO2 06/18/18 03:43 98.5 68 18 96 Nasal Cannula 3.0 EKG EKG [] Radiology/Procedures Radiology/Procedures [] Course & Med Decision Making Course & Med Decision Making Pertinent Labs and Imaging studies reviewed. (See chart for details) Once we unwrapped the patient's wound, it did appear that it would benefit from sutures. The patient agreed to have sutures placed. See note below for more details of the procedure. The patient's tetanus is up-to-date. This was a clean wound and I do not believe an antibiotic is indicated at this time. The patient is stable for discharge at this time. [] Dragon Disclaimer Dragon Disclaimer This electronic medical record was generated, in whole or in part, using a voice recognition dictation system. Laceration Repair Lac Repair Indication: 5 cm V-shaped laceration of the left lower leg. Procedure: Verbal consent was obtained from the patient for suture closure of the laceration of the left lower leg. One percent lidocaine with epinephrine was used for local anesthesia. A total of 3 mL was used. Once good anesthesia was achieved, I placed 9 4-0 Ethilon sutures in interrupted fashion. There was reasonable skin approximation. Bleeding was controlled. Total repaired wound length: 5 cm Other Items: The laceration was covered with triple antibiotic and a nonadherent pad covered with Coban. The patient tolerated the procedure well. Complications: None. Departure Departure: Referrals: STANISLAV HATCH MD (PCP) DESTINY MALDONADO DO Jun 18, 2018 04:23
[2018-06-18] MEDS ORDERED: ERYT1OIN6 OP (04:30)
[2018-06-18] MEDS: BACITRACIN ZINC TOPICAL OINT PACKET. TP ONE (05:00)
== END 2018-06-18 05:30 | disposition home or self-care (01) ==
LOC: ER 03:33
DX: S81.812A Laceration without foreign body, left lower leg, initial encounter (principal); H57.89 Other specified disorders of eye and adnexa; J44.9 Chronic obstructive pulmonary disease, unspecified; M19.90 Unspecified osteoarthritis, unspecified site; Z88.4 Allergy status to anesthetic agent; Z91.041 Radiographic dye allergy status; Z88.8 Allergy status to other drugs, medicaments and biological substances; W22.8XXA Striking against or struck by other objects, initial encounter; Y93.84 Activity, sleeping; Y92.89 Other specified places as the place of occurrence of the external cause; Y99.8 Other external cause status
CPT/HCPCS: 12002; 99284

== ENCOUNTER 2018-08-11 20:35 | Emergency (ER) | payer MEDICARE, BC ==
[~2018-08-11] VITALS: Ht 193 cm; Wt 77.6 kg
[~2018-08-11 20:35] MED LIST changes: +ERYT1OIN6 OP
[2018-08-11 21:39] LABS: HEMATOCRIT 31.4 % (39.0-53.0); HEMOGLOBIN 9.7 g/dL (13.0-17.5); RED BLOOD COUNT 3.64 x10^6/uL (4.30-5.70); RED CELL DISTRIBUTION WIDTH 20.5 % (11.5-14.5); WHITE BLOOD COUNT 23.7 x10^3/uL (4.0-11.0)
[2018-08-11 21:47] LABS: CALCIUM 8.5 mg/dL (8.5-10.1); CREATININE 1.5 mg/dL (0.7-1.3); GFR 44.8; POTASSIUM 4.9 mmol/L (3.5-5.1)
--- NOTE | 2018-08-11 22:08 | ED.ADGEN ---
Past History Past Medical History: Arthritis, Cancer, COPD Past Surgical History: Tonsillectomy, Other Alcohol Use: None Drug Use: None Adult General Chief Complaint Chief Complaint fall HPI HPI 82 years old male presented to the emergency department after frequent falls at home mechanical no syncope no presyncope he is on hospice for lymphoma. Denies chest pain or shortness of breath on oxygen no fever no chills no any acute symptoms Review of Systems Review of Systems Constitutional: Denies fever or chills [] Eyes: Denies change in visual acuity, redness, or eye pain [] HENT: Denies nasal congestion or sore throat [] Respiratory: Denies cough or shortness of breath [] Cardiovascular: No additional information not addressed in HPI [] GI: Denies abdominal pain, nausea, vomiting, bloody stools or diarrhea [] : Denies dysuria or hematuria [] Musculoskeletal: Denies back pain or joint pain [] Integument: Denies rash or skin lesions [] Neurologic: Denies headache, focal weakness or sensory changes [] Endocrine: Denies polyuria or polydipsia [] All other systems were reviewed and found to be within normal limits, except as documented in this note. Allergies Allergies Allergies Coded Allergies Type Severity Reaction Last Updated Verified procaine Allergy Intermediate 03/27/16 Yes pseudoephedrine Allergy Intermediate 03/27/16 Yes I S O L A T I O N *CONTACT* Allergy Unknown 01/14/18 Yes Physical Exam Physical Exam HENT: Normocephalic, atraumatic, bilateral external ears normal, oropharynx moist, no oral exudates, nose normal. [] Eyes: PERRLA, EOMI, conjunctiva normal, no discharge. [] Neck: Normal range of motion, no tenderness, supple, no stridor. [] Cardiovascular:Heart rate regular rhythm, no murmur [] Lungs & Thorax: Bilateral breath sounds clear to auscultation [] Abdomen: Bowel sounds normal, soft, no tenderness, no masses, no pulsatile masses. [] Skin: Warm, dry, no erythema, no rash. [] Back: No tenderness, no CVA tenderness. [] Extremities: No tenderness, no cyanosis, no clubbing, ROM intact, no edema. [] Neurologic: Alert and oriented X 3, normal motor function, normal sensory function, no focal deficits noted. [] Psychologic: Affect normal, judgement normal, mood normal. [] Current Patient Data Lab Results Laboratory Tests Test 08/11/18 21:29 White Blood Count 23.7 x10^3/uL (4.0-11.0) H Red Blood Count 3.64 x10^6/uL (4.30-5.70) L Hemoglobin 9.7 g/dL (13.0-17.5) L Hematocrit 31.4 % (39.0-53.0) L Mean Corpuscular Volume 86 fL (79-100) Mean Corpuscular Hemoglobin 27 pg (25-35) Mean Corpuscular Hemoglobin Concent 31 g/dL (31-37) Red Cell Distribution Width 20.5 % (11.5-14.5) H Platelet Count 61 x10^3/uL (140-400) L Sodium Level 140 mmol/L (136-145) Potassium Level 4.9 mmol/L (3.5-5.1) Chloride Level 102 mmol/L (98-107) Carbon Dioxide Level 31 mmol/L (21-32) Anion Gap 7 (6-14) Blood Urea Nitrogen 35 mg/dL (8-26) H Creatinine 1.5 mg/dL (0.7-1.3) H Estimated GFR (Cockcroft-Gault) 44.8 Glucose Level 109 mg/dL (70-99) H Calcium Level 8.5 mg/dL (8.5-10.1) EKG EKG [] Radiology/Procedures Radiology/Procedures [] Course & Med Decision Making Course & Med Decision Making Pertinent Labs and Imaging studies reviewed. (See chart for details) [] Final Impression Final Impression [] Problems: (1) Accident due to mechanical fall without injury Qualifiers: Qualified Codes: W19.XXXA - Unspecified fall, initial encounter Dragon Disclaimer Dragon Disclaimer This electronic medical record was generated, in whole or in part, using a voice recognition dictation system. WILBERT HUGHES MD Aug 11, 2018 22:08
--- NOTE | 2018-08-11 22:24 | RAD ---
AP pelvis radiograph 08/11/2018 CLINICAL HISTORY: Fall with pelvic pain. An AP portable digital radiograph of the pelvis to include both hips was obtained. There is diffuse osteopenia of the visualized bony structures. No pelvic bone fracture is seen. Both hips are intact. Mild degenerative changes are seen involving both hips and both SI joints. IMPRESSION: No pelvic bone fracture is seen. Electronically signed by: Kamron Sexton MD (08/11/2018 10:21 PM) [facility]
[2018-08-11 22:54] VITALS: BP 120/46
== END 2018-08-11 23:05 | disposition home or self-care (01) ==
LOC: ER 20:35
DX: Z04.3 Encounter for examination and observation following other accident (principal); R10.2 Pelvic and perineal pain; R29.6 Repeated falls; M19.90 Unspecified osteoarthritis, unspecified site; J44.9 Chronic obstructive pulmonary disease, unspecified; Z91.81 History of falling; Z88.5 Allergy status to narcotic agent; Z88.8 Allergy status to other drugs, medicaments and biological substances; Z91.041 Radiographic dye allergy status; W18.39XA Other fall on same level, initial encounter; Y93.89 Activity, other specified; Y92.098 Other place in other non-institutional residence as the place of occurrence of the external cause; Y99.8 Other external cause status
CPT/HCPCS: 36415; 72170; 80048; 85027; 99284